=== PATIENT | male | born 1975 ===

== ENCOUNTER → 2016-11-20 | Outpatient (CLI) | payer OTHER ==
--- NOTE | 2016-11-20 23:13 | US ---
EXAMINATION TYPE: US venous doppler duplex LE LT DATE OF EXAM: 11/20/2016 3:51 PM COMPARISON: NONE CLINICAL HISTORY: M79.89 Swelling of LE,L53.9Redness. SIDE PERFORMED: Left VESSELS IMAGED: External Iliac Vein (EIV) Common Femoral Vein Deep Femoral Vein Greater Saphenous Vein * Femoral Vein Popliteal Vein Proximal Calf Veins (* superficial vessels) TECHNOLOGIST IMPRESSION: wnl Right Leg: Negative for DVT Satisfactory color flow, phasicity, and compressibility is seen in the. Structures of the left lower extremity at the above levels. IMPRESSION: No ultrasound evidence for acute DVT in the left lower extremity.
== END | disposition home or self-care (01) ==
LOC: RADUSWWP 15:19
PROVIDERS: ATTEND Family Medicine
DX: M79.89 Other specified soft tissue disorders (principal); L03.90 Cellulitis, unspecified; M79.606 Pain in leg, unspecified; L53.9 Erythematous condition, unspecified

== ENCOUNTER → 2016-11-20 | Outpatient (CLI) | payer OTHER | END | disposition home or self-care (01) | LOC: LAB 15:49 | PROVIDERS: ATTEND Nurse Practitioner Family | DX: L03.90 Cellulitis, unspecified (principal); M79.606 Pain in leg, unspecified; M79.89 Other specified soft tissue disorders; L53.9 Erythematous condition, unspecified | CPT/HCPCS: 85379 ==

== ENCOUNTER 2018-11-20 10:41 | Emergency (ER) | payer OTHER ==
[2018-11-20] MEDS ORDERED: SODIUM CHLORIDE 0.9% 1,000 ML IV STA (11:00)
[2018-11-20] MEDS ORDERED: KETOROLAC 30 MG/ML 1 ML VIAL IVP STA (11:00)
--- NOTE | 2018-11-20 11:24 | ED ---
General Adult HPI - General Chief complaint: Abdominal Pain Stated complaint: Male Time Seen by Provider: 11/20/18 10:52 Source: patient, RN notes reviewed Mode of arrival: ambulatory Limitations: no limitations - History of Present Illness Initial comments: 43-year-old male presents to the emergency department for a chief complaint of left groin pain x years. Patient states he has a hernia there. He states that 6 years ago he had a hernia repair on his right groin and this feels the same. He states the pain is now radiating up into the left side of the abdomen. Patient states his physician has been aware of this but he has not yet seen a surgeon. However the symptoms are apparently worsening including pain. Patient states sometimes there is a left groin bulge but he is able to reduce this. He denies testicular pain. Patient states he has also been constipated and has been having less frequent bowel movements. Last bowel movement was about 2 days ago and was harder than normal in consistency. Patient has no other complaints at this time including shortness of breath, chest pain, abdominal pain, nausea or vomiting, headache, or visual changes. - Related Data Home Medications Medication Instructions Recorded Confirmed Omeprazole [PriLOSEC] 20 mg PO AC-BRKFST 11/30/15 11/20/18 Aspirin/Acetaminophen/Caffeine 2 tab PO Q12H PRN 11/20/18 11/20/18 [Excedrin Migraine Caplet] Naproxen Sodium [Aleve] 220 mg PO DAILY PRN 11/20/18 11/20/18 Previous Rx's Medication Instructions Recorded Clindamycin HCl [Cleocin] 300 mg PO Q6HR 10 Days cap 11/20/18 Sulfamethoxazole/Trimethoprim 1 each PO Q12H 10 Days tablet 11/20/18 [Bactrim DS 800-160 mg] Allergies Allergy/AdvReac Type Severity Reaction Status Date / Time Penicillins Allergy Anaphylaxis Verified 11/20/18 11:03 Review of Systems ROS Statement: Those systems with pertinent positive or pertinent negative responses have been documented in the HPI. ROS Other: All systems not noted in ROS Statement are negative. Past Medical History Past Medical History: Asthma, Chest Pain / Angina, Hypertension History of Any Multi-Drug Resistant Organisms: MRSA Date of last positivie culture/infection: 11/30/15 MDRO Source:: Right Arm Past Surgical History: Hernia Repair, Orthopedic Surgery Additional Past Surgical History / Comment(s): PT STATES HE HAS SOME "CLOGGED ARTERY" ISSUES. STATES PHYSICIAN DIDN'T PUT HIM ON ANY MEDICATIONS. ALTERED DIET. ORTHOPEDIC SURGERY ON RIGHT HAND. Past Anesthesia/Blood Transfusion Reactions: No Reported Reaction Past Psychological History: Anxiety Smoking Status: Current some day smoker Past Alcohol Use History: None Reported, Daily Past Drug Use History: Marijuana General Exam Limitations: no limitations General appearance: alert, in no apparent distress Head exam: Present: atraumatic, normocephalic, normal inspection Eye exam: Present: normal appearance, PERRL, EOMI. Absent: scleral icterus, conjunctival injection, periorbital swelling ENT exam: Present: normal exam, mucous membranes moist Neck exam: Present: normal inspection, full ROM. Absent: tenderness, meningismus, lymphadenopathy Respiratory exam: Present: normal lung sounds bilaterally. Absent: respiratory distress, wheezes, rales, rhonchi, stridor Cardiovascular Exam: Present: regular rate, normal rhythm, normal heart sounds. Absent: systolic murmur, diastolic murmur, rubs, gallop, clicks GI/Abdominal exam: Present: soft, tenderness (minimal LLQ tenderness and left groin tenderness. no bulging or erythema of the L groin,), normal bowel sounds. Absent: distended, guarding, rebound, rigid Extremities exam: Present: full ROM (Full range motion in the right upper extremity), normal capillary refill (Capillary refill less than 2 seconds and radial pulse 2+ in the right upper extremity), other (Small 1 cm x 1 cm area of erythema noted to the left external upper arm. No evidence of a cellulitic infection. No spreading redness.) Neurological exam: Present: alert, oriented X3, CN II-XII intact Psychiatric exam: Present: normal affect, normal mood Course Vital Signs 11/20/18 11/20/18 10:43 13:00 Temperature 98.5 F 97.8 F Pulse Rate 81 77 Respiratory 18 20 Rate Blood Pressure 184/84 119/73 O2 Sat by Pulse 99 99 Oximetry - Reevaluation(s) Reevaluation #1: 11/20/18 13:41 Patient states he cannot take Bactrim. I did review his records and Bactrim causes itchiness and him. He did have clindamycin last time which he believes worked. He will be given this. However I did discuss strict return parameters of infection worsens. Medical Decision Making - Medical Decision Making 43-year-old male presents to the emergency department for chief complaint of left groin pain times years. Patient has had a right inguinal hernia as well. Patient states he believes he has a hernia in the left groin as he sometimes sees a buldge but is able to reduce it. Patient also complains of some left abdominal pain. Patient also has an area of erythema about 1 cm x 1 cm noted to the right proximal upper extremity. Patient concern for MRSA infection. Patient will be given Bactrim for this. However he will monitor this and agrees to return here if anything worsens. At this time patient will also be given referral to general surgeon for fat-containing hernia. Patient is frustrated that this cannot be fixed today as he has had these symptoms for 2 years. However I discussed the patient that since his symptoms have been consistent for 2 years at this time he should follow up with surgery outpatient. However I discussed if he is unable to reduce the hernia to immediately return. He will return here if he has worsening symptoms. She will also follow up with primary care for hypertension. Asymptomatic at this time. - Lab Data Result diagrams: 11/20/18 11:30 11/20/18 11:30 Lab Results 11/20/18 11/20/18 11/20/18 Range/Units 11:30 11:30 12:10 WBC 7.8 (3.8-10.6) k/uL RBC 4.57 (4.30-5.90) m/uL Hgb 13.9 (13.0-17.5) gm/dL Hct 42.1 (39.0-53.0) % MCV 92.0 (80.0-100.0) fL MCH 30.4 (25.0-35.0) pg MCHC 33.0 (31.0-37.0) g/dL RDW 12.9 (11.5-15.5) % Plt Count 202 (150-450) k/uL Neutrophils % 61 % Lymphocytes % 27 % Monocytes % 7 % Eosinophils % 3 % Basophils % 0 % Neutrophils # 4.7 (1.3-7.7) k/uL Lymphocytes # 2.1 (1.0-4.8) k/uL Monocytes # 0.5 (0-1.0) k/uL Eosinophils # 0.3 (0-0.7) k/uL Basophils # 0.0 (0-0.2) k/uL Sodium 142 (137-145) mmol/L Potassium 4.3 (3.5-5.1) mmol/L Chloride 107 (98-107) mmol/L Carbon Dioxide 29 (22-30) mmol/L Anion Gap 6 mmol/L BUN 15 (9-20) mg/dL Creatinine 0.72 (0.66-1.25) mg/dL Est GFR (CKD-EPI)AfAm >90 (>60 ml/min/1.73 sqM) Est GFR (CKD-EPI)NonAf >90 (>60 ml/min/1.73 sqM) Glucose 103 H (74-99) mg/dL Calcium 9.5 (8.4-10.2) mg/dL Total Bilirubin 0.4 (0.2-1.3) mg/dL AST 23 (17-59) U/L ALT 27 (21-72) U/L Alkaline Phosphatase 70 (38-126) U/L Total Protein 6.8 (6.3-8.2) g/dL Albumin 4.0 (3.5-5.0) g/dL Amylase 43 (30-110) U/L Lipase 71 (23-300) U/L Urine Color Yellow Urine Appearance Clear (Clear) Urine pH 7.0 (5.0-8.0) Ur Specific [place] 1.017 (1.001-1.035) Urine Protein Negative (Negative) Urine Glucose (UA) Negative (Negative) Urine Ketones Negative (Negative) Urine Blood Negative (Negative) Urine Nitrite Negative (Negative) Urine Bilirubin Negative (Negative) Urine Urobilinogen <2.0 (<2.0) mg/dL Ur Leukocyte Esterase Negative (Negative) Disposition Clinical Impression: Left inguinal hernia Disposition: HOME SELF-CARE Condition: Good Additional Instructions: Please follow up with surgeon in one to 2 days. Please take antibiotic as directed. If infection worsens or you have any other worsening symptoms return here to the emergency department. Prescriptions: Clindamycin HCl [Cleocin] 300 mg PO Q6HR 10 Days cap Sulfamethoxazole/Trimethoprim [Bactrim DS 800-160 mg] 1 each PO Q12H 10 Days tablet Is patient prescribed a controlled substance at d/c from ED?: No Referrals: Sunny Davis MD [Primary Care Provider] - 1-2 days Divina Tolentino MD [STAFF PHYSICIAN] - 1-2 days Time of Disposition: 12:59
[2018-11-20 12:04] LABS: Basophils % (A) 0 %; Eosinophils # (A) 0.3 k/uL (0-0.7); Eosinophils % (A) 3 %; HCT 42.1 % (39.0-53.0); HGB 13.9 gm/dL (13.0-17.5); Lymphocytes # (A) 2.1 k/uL (1.0-4.8); Lymphocytes % (A) 27 %; MCH 30.4 pg (25.0-35.0); Mean Platelet Volume 8.3; Monocytes # (A) 0.5 k/uL (0-1.0); Monocytes % (A) 7 %; Neutrophils # (A) 4.7 k/uL (1.3-7.7); Neutrophils % (A) 61 %; Platelet Count 202 k/uL (150-450); RBC 4.57 m/uL (4.30-5.90); RDW 12.9 % (11.5-15.5); WBC 7.8 k/uL (3.8-10.6)
[2018-11-20 12:15] LABS: ALT 27 U/L (21-72); AST 23 U/L (17-59); Alkaline Phosphatase 70 U/L (38-126); Amylase 43 U/L (30-110); Anion Gap 6 mmol/L; Blood Urea Nitrogen 15 mg/dL (9-20); Calcium 9.5 mg/dL (8.4-10.2); Carbon Dioxide 29 mmol/L (22-30); Chloride 107 mmol/L (98-107); Glucose 103 mg/dL (74-99); Lipase 71 U/L (23-300); Potassium 4.3 mmol/L (3.5-5.1); Sodium 142 mmol/L (137-145); Total Bilirubin 0.4 mg/dL (0.2-1.3); Total Protein 6.8 g/dL (6.3-8.2)
[2018-11-20 12:29] LABS: Appearance,Urine Clear (Clear); Bilirubin,Urine Negative (Negative); Blood,Urine Negative (Negative); Color,Urine Yellow; Glucose,Urine (UA) Negative (Negative); Ketones,Urine Negative (Negative); Leukocyte Esterase,Urine Negative (Negative); Nitrite,Urine Negative (Negative); Protein,Urine Negative (Negative); Specific Gravity,Urine 1.017 (1.001-1.035); Urobilinogen,Urine <2.0 mg/dL (<2.0)
--- NOTE | 2018-11-20 12:29 | CT ---
EXAMINATION TYPE: CT abdomen pelvis w con DATE OF EXAM: 11/20/2018 COMPARISON: None HISTORY: Left sided abdominal pain CT DLP: 667.20 mGycm Automated exposure control for dose reduction was used. TECHNIQUE: Helical acquisition of images from the lung bases through the pelvis have been completed. CONTRAST: Performed without Oral Contrast and with IV Contrast, patient injected with 100 mL of Isovue 300. FINDINGS: Suspect there is a left inguinal hernia containing fat LUNG BASES: No significant abnormality is appreciated. AORTA: No significant abnormality is appreciated. LIVER/GB: Liver is enlarged and shows low attenuation PANCREAS: No significant abnormality is seen. SPLEEN: No significant abnormality is seen. ADRENALS: No significant abnormality is seen. KIDNEYS: Left collecting system is noted, 2 discrete ureters noted to extend distally to the level of the bladder. No renal calcifications, there is an exophytic cystic focus at the midpole the right ki dney measuring 2 cm. REPRODUCTIVE ORGANS: No significant abnormality is seen BOWEL: There are small bowel loops show fluid and questionable wall thickening in the left abdomen. The appendix is normal. FREE AIR: No Free Air visible. ASCITES: None visible. PELVIC ADENOPATHY: None visualized. RETROPERITONEAL ADENOPATHY: No Retroperitoneal Adenopathy visible. URINARY BLADDER: No significant abnormality is seen. OSSEOUS STRUCTURES: No significant abnormality is seen. IMPRESSION: CORRELATE FOR POSSIBLE ENTERITIS. SUSPECT POSSIBLE RECURRENCE OF LEFT INGUINAL HERNIA, CORRELATE. Hep atomegaly, possible hepatic steatosis.
[2018-11-20 13:15] VITALS: BP 119/73; PULSE 77; RESP 20; TEMP 97.8
== END 2018-11-20 13:30 | disposition home or self-care (01) ==
LOC: EC 10:41
DX: K40.90 Unilateral inguinal hernia, without obstruction or gangrene, not specified as recurrent (principal); F17.200 Nicotine dependence, unspecified, uncomplicated; Z87.19 Personal history of other diseases of the digestive system; Z86.14 Personal history of Methicillin resistant Staphylococcus aureus infection; Z98.890 Other specified postprocedural states; Z79.899 Other long term (current) drug therapy; Z88.0 Allergy status to penicillin
CPT/HCPCS: 36415; 80053; 82150; 83690; 85025; 81003; 74177; 99284; 96374; 96361; J1885; Q9967

== ENCOUNTER 2019-02-04 06:56 | Day surgery (SDC) | payer OTHER ==
[2019-01-30 13:21] VITALS: BMI 26.9
[~2019-02-04 06:56] MED LIST: LACTATED RINGERS 1,000 ML IV SCH; LIDOCAINE 1% 20 ML VIAL (10MG/ML) FOR IV START INTRADERMA PRN
[2019-02-04 07:13] VITALS: TEMP 98.5
[2019-02-04] MEDS ORDERED: PROPOFOL 10 MG/ML 20 ML VIAL IV ONE (07:39)
--- NOTE | 2019-02-04 07:40 | P.GSHP ---
History of Present Illness H&P Date: 02/04/19 CHIEF COMPLAINT: GERD HISTORY OF PRESENT ILLNESS: The patient is a 43-year-old male who presents reports gastroesophageal reflux disease. Upper endoscopy was offered for further evaluation and management. PAST MEDICAL HISTORY: Please see list. PAST SURGICAL HISTORY: Please see list. MEDICATIONS: Please see list. ALLERGIES: Please see list. SOCIAL HISTORY: No illicit drug use FAMILY HISTORY: No reports of Crohn disease or ulcerative colitis. REVIEW OF ORGAN SYSTEMS: CONSTITUTIONAL: No reports of fevers or chills. GI: Denies any blood in stools or constipation. PHYSICAL EXAM: VITAL SIGNS: Stable GENERAL: Well-developed and pleasant in no acute distress. HEENT: No scleral icterus. Extraocular movements grossly intact. Moist buccal mucosa. NECK: Supple without lymphadenopathy. CHEST: Unlabored respirations. Equal bilateral excursions. CARDIOVASCULAR: Regular rate and rhythm. Distal 2+ pulses. ABDOMEN: Soft, nondistended. MUSCULOSKELETAL: No clubbing, cyanosis, or edema. ASSESSMENT: 1. Gastroesophageal reflux disease PLAN: 1. Recommend proceeding with an upper endoscopy Past Medical History Past Medical History: Asthma, Chest Pain / Angina, GERD/Reflux, Hyperlipidemia, Hypertension History of Any Multi-Drug Resistant Organisms: MRSA Date of last positivie culture/infection: 11/30/15 MDRO Source:: Right Arm Past Surgical History: Hernia Repair, Orthopedic Surgery Additional Past Surgical History / Comment(s): ORTHOPEDIC SURGERY ON RIGHT HAND. Past Anesthesia/Blood Transfusion Reactions: No Reported Reaction Smoking Status: Never smoker - Past Family History Mother Family Medical History: No Reported History Medications and Allergies Home Medications Medication Instructions Recorded Confirmed Type Omeprazole [PriLOSEC] 20 mg PO AC-BRKFST 11/30/15 02/04/19 History Atorvastatin [Lipitor] 20 mg PO DAILY 01/30/19 02/04/19 History Cyclobenzaprine [Flexeril] 10 mg PO BID PRN 01/30/19 02/04/19 History Ergocalciferol (Vitamin D2) 50,000 unit PO TU 01/30/19 01/30/19 History [Vitamin D2] HYDROcodone/APAP 7.5-325MG [[place] 1 tab PO BID 01/30/19 02/04/19 History 7.5-325] Loratadine [Claritin] 10 mg PO DAILY PRN 01/30/19 02/04/19 History Metoprolol Tartrate [Lopressor] 25 mg PO BID 01/30/19 02/04/19 History amLODIPine [Norvasc] 5 mg PO DAILY 01/30/19 02/04/19 History Allergies Allergy/AdvReac Type Severity Reaction Status Date / Time Penicillins Allergy Anaphylaxis Verified 02/04/19 07:13 Surgical - Exam Vital Signs Temp Pulse Resp BP Pulse Ox 98.5 F 82 17 122/67 100 02/04/19 07:11 02/04/19 07:11 02/04/19 07:11 02/04/19 07:11 02/04/19 07:11
[2019-02-04 07:58] VITALS: RESP 16
[2019-02-04 08:28] VITALS: BP 137/77; PULSE 80
--- NOTE | 2019-02-08 14:34 | P.PCN ---
Date of Procedure: 02/04/19 Description of Procedure: PREOPERATIVE DIAGNOSIS: Gastroesophageal reflux disease. POSTOPERATIVE DIAGNOSIS: Gastritis chronic Gastroesophageal reflux disease. Diaphragmatic hiatal hernia OPERATION: Esophagogastroduodenoscopy with biopsies along antrum. SURGEON: Divina Tolentino MD ANESTHESIA: MAC. INDICATIONS: The patient is a 43-year-old male who presents with a history of reflux disease. Benefits and risks of the procedure were described. Informed consent was obtained. DESCRIPTION: The patient was brought into the endoscopy suite and laid in the left lateral decubitus position. An Olympus gastroscope was passed along the posterior oropharynx down to the distal esophagus where the squamocolumnar junction was encountered at 40 cm from the incisors. The stomach was entered and no bile reflux was found. Additional findings are listed below. Biopsies with cold forceps were obtained of the antrum. The first through third portion of the duodenum was examined and unremarkable for duodenitis. Retroflexion of the scope confirmed Hill grade 3 lower esophageal valve. The squamocolumnar junction demonstrated LA grade A erosive esophagitis. The stomach was desufflated. The patient tolerated the procedure well. FINDINGS: Squamocolumnar junction 40 cm from the incisors. Diaphragmatic hiatus at 41 cm. Hiatal hernia, 1 cm Hill grade 3 lower esophageal valve. LA grade A erosive esophagitis. No active duodenitis. Chronic gastritis RECOMMENDATIONS: Upper endoscopy as needed. Plan - Discharge Summary Discharge Rx Participant: No New Discharge Prescriptions: New Omeprazole 40 mg PO DAILY #14 capsule.dr Discontinued Omeprazole [PriLOSEC] 20 mg PO AC-BRKFST No Action amLODIPine [Norvasc] 5 mg PO DAILY Atorvastatin [Lipitor] 20 mg PO DAILY Metoprolol Tartrate [Lopressor] 25 mg PO BID Loratadine [Claritin] 10 mg PO DAILY PRN PRN Reason: allergies HYDROcodone/APAP 7.5-325MG [[place] 7.5-325] 1 tab PO BID Cyclobenzaprine [Flexeril] 10 mg PO BID PRN PRN Reason: Pain Ergocalciferol (Vitamin D2) [Vitamin D2] 50,000 unit PO TU Discharge Medication List Atorvastatin [Lipitor] 20 mg PO DAILY 01/30/19 [History] Cyclobenzaprine [Flexeril] 10 mg PO BID PRN 01/30/19 [History] Ergocalciferol (Vitamin D2) [Vitamin D2] 50,000 unit PO TU 01/30/19 [History] HYDROcodone/APAP 7.5-325MG [[place] 7.5-325] 1 tab PO BID 01/30/19 [History] Loratadine [Claritin] 10 mg PO DAILY PRN 01/30/19 [History] Metoprolol Tartrate [Lopressor] 25 mg PO BID 01/30/19 [History] amLODIPine [Norvasc] 5 mg PO DAILY 01/30/19 [History] Omeprazole 40 mg PO DAILY #14 capsule. 02/04/19 [Rx] Follow up Appointment(s)/Referral(s): Divina Tolentino MD [STAFF PHYSICIAN] - 03/03/19 Patient Instructions/Handouts: *Surgery [facility] - (Anesthesia) Endoscopy Discharge Instructions, Gastritis (DC), Upper Endoscopy (DC) Activity/Diet/Wound Care/Special Instructions: Start new medication for 2 to 4 weeks Discharge Disposition: HOME SELF-CARE
== END 2019-02-04 08:36 | disposition home or self-care (01) ==
LOC: ORWHC2ENDO 06:56
PROVIDERS: ATTEND Surgery Plastic and Reconstructive Surgery
DX: K21.9 Gastro-esophageal reflux disease without esophagitis (principal); K29.50 Unspecified chronic gastritis without bleeding; K22.10 Ulcer of esophagus without bleeding; K44.9 Diaphragmatic hernia without obstruction or gangrene; I10 Essential (primary) hypertension; E78.5 Hyperlipidemia, unspecified; J45.909 Unspecified asthma, uncomplicated; Z86.14 Personal history of Methicillin resistant Staphylococcus aureus infection; F41.9 Anxiety disorder, unspecified; Z79.891 Long term (current) use of opiate analgesic; Z79.899 Other long term (current) drug therapy; Z88.0 Allergy status to penicillin
CPT/HCPCS: 88305; 43239; J2704

== ENCOUNTER → 2019-03-06 | Outpatient (CLI) | payer OTHER ==
--- NOTE | 2019-03-06 11:55 | US ---
EXAMINATION TYPE: US kidneys/renal and bladder DATE OF EXAM: 03/06/2019 COMPARISON: CT 11/20/2018 CLINICAL HISTORY: N28.1 Right Cyst of kidney. Pt states recent MRI showing right renal cyst, pt also ahs previous CT Nov 2018 showing right renal cyst EXAM MEASUREMENTS: Right Kidney: 11.3 x 4.8 x 5.1 cm Left Kidney: 11.8 x 6.7 x 5.7 cm Right Kidney: Cyst lateral= 1.5 x 1.3 x 1.0 cm Left Kidney: Double collecting system, otherwise appeared wnl Bladder: wnl Bilateral Jets seen: Yes Normal Post Void Residual: IMPRESSION: 1. Simple right renal cyst.
== END | disposition home or self-care (01) ==
LOC: RADUSWWP 10:58
PROVIDERS: ATTEND Psychiatry & Neurology Neurology
DX: N28.1 Cyst of kidney, acquired (principal)
CPT/HCPCS: 76770

== ENCOUNTER 2019-04-09 15:35 | Emergency (ER) | payer OTHER ==
[2019-04-09] MEDS ORDERED: VANCOMYCIN IV PER PHARMACY 1 EACH MISC MISCELLANE PRN (16:00)
[2019-04-09] MEDS ORDERED: SODIUM CHLORIDE 0.9% 1,000 ML IV ONE (16:00)
[2019-04-09] MEDS ORDERED: SODIUM CHLORIDE 0.9% 1,000 ML IV SCH (16:00)
[2019-04-09] MEDS ORDERED: VANCOMYCIN 1,500 MG in SODIUM CHLORIDE 0.9% 250 ML IVPB STA (16:12)
--- NOTE | 2019-04-09 16:16 | ED ---
General Adult HPI - General Chief complaint: Recheck/Abnormal Lab/Rx Stated complaint: pt won't tell me what he's here for Time Seen by Provider: 04/09/19 15:45 Source: patient, RN notes reviewed, old records reviewed Mode of arrival: ambulatory Limitations: no limitations - History of Present Illness Initial comments: Patient is a 43-year-old male who presents from being sent by his PCPs office for concern for MRSA. Patient has an abrasion over his left olsen which she sustained on Saturday while riding a tractor. Patient states that he is ALLERGI C to oral antibiotics. Patient's PCP called attending emergency room physician to report he is coming. Patient has had a history of not feeling well and complains of history of fever. Patient complains of left olsen swelling. Patient has had no other symptoms at this time. - Related Data Home Medications Medication Instructions Recorded Confirmed Atorvastatin [Lipitor] 20 mg PO DAILY 01/30/19 02/04/19 Cyclobenzaprine [Flexeril] 10 mg PO BID PRN 01/30/19 02/04/19 Ergocalciferol (Vitamin D2) 50,000 unit PO TU 01/30/19 01/30/19 [Vitamin D2] HYDROcodone/APAP 7.5-325MG [[place] 1 tab PO BID 01/30/19 02/04/19 7.5-325] Loratadine [Claritin] 10 mg PO DAILY PRN 01/30/19 02/04/19 Metoprolol Tartrate [Lopressor] 25 mg PO BID 01/30/19 02/04/19 amLODIPine [Norvasc] 5 mg PO DAILY 01/30/19 02/04/19 Previous Rx's Medication Instructions Recorded Omeprazole 40 mg PO DAILY #14 capsule. 02/04/19 Doxycycline [Vibramycin] 100 mg PO BID #14 cap 04/09/19 Allergies Allergy/AdvReac Type Severity Reaction Status Date / Time Penicillins Allergy Anaphylaxis Verified 02/04/19 07:13 Review of Systems ROS Statement: Those systems with pertinent positive or pertinent negative responses have been documented in the HPI. ROS Other: All systems not noted in ROS Statement are negative. Past Medical History Past Medical History: Asthma, Chest Pain / Angina, GERD/Reflux, Hyperlipidemia, Hypertension History of Any Multi-Drug Resistant Organisms: MRSA Date of last positivie culture/infection: 11/30/15 MDRO Source:: Right Arm Past Surgical History: Hernia Repair, Orthopedic Surgery Additional Past Surgical History / Comment(s): ORTHOPEDIC SURGERY ON RIGHT HAND. Past Anesthesia/Blood Transfusion Reactions: No Reported Reaction Past Psychological History: Anxiety Smoking Status: Never smoker Past Alcohol Use History: None Reported Past Drug Use History: Marijuana - Past Family History Mother Family Medical History: No Reported History General Exam - General Exam Comments Initial Comments: is a 43-year-old male. Patient appears manic. Hyperverbal. Limitations: no limitations General appearance: alert Head exam: Present: atraumatic, normocephalic, normal inspection Eye exam: Present: normal appearance, PERRL, EOMI. Absent: scleral icterus, conjunctival injection, periorbital swelling ENT exam: Present: normal exam, mucous membranes moist Neck exam: Present: normal inspection. Absent: tenderness, meningismus, lymphadenopathy Respiratory exam: Present: normal lung sounds bilaterally. Absent: respiratory distress, wheezes, rales, rhonchi, stridor Cardiovascular Exam: Present: regular rate, normal rhythm, normal heart sounds. Absent: systolic murmur, diastolic murmur, rubs, gallop, clicks GI/Abdominal exam: Present: soft, normal bowel sounds. Absent: distended, tenderness, guarding, rebound, rigid Extremities exam: Present: normal inspection, other (2cm abrasion over left olsen, no induration, no swelling. No drainage. ) Back exam: Present: normal inspection Neurological exam: Present: alert Psychiatric exam: Present: normal affect Skin exam: Present: warm Course Vital Signs 04/09/19 04/09/19 04/09/19 15:38 17:52 18:43 Temperature 98.4 F 98.3 F 98.9 F Pulse Rate 80 60 69 Respiratory 20 19 18 Rate Blood Pressure 142/81 131/95 124/78 O2 Sat by Pulse 100 99 100 Oximetry Medical Decision Making - Medical Decision Making Patient is a 43 year old male presents for abrasion over left olsen. Patient is concerned for infection, as he has had a history of MRSA on left arm. Patient at si time has no significant induration, swelling or other signs of infection. He presents somewhat hyperverbal behaviour. Patient PCP sent in. At this time patient has normal labs, and US is negative for DVT. Given dose of vancomycin. Discussed that patient has not falied outpatient treatment nad there is no significant cellulitis for admission. Patient will be started on doxycycline and discussed PCP follow up. - Lab Data Result diagrams: 04/09/19 16:16 04/09/19 16:16 Lab Results 04/09/19 04/09/19 Range/Units 16:16 16:16 WBC 7.2 (3.8-10.6) k/uL RBC 3.88 L (4.30-5.90) m/uL Hgb 12.4 L (13.0-17.5) gm/dL Hct 36.2 L (39.0-53.0) % MCV 93.2 (80.0-100.0) fL MCH 32.1 (25.0-35.0) pg MCHC 34.4 (31.0-37.0) g/dL RDW 13.0 (11.5-15.5) % Plt Count 216 (150-450) k/uL Neutrophils % 55 % Lymphocytes % 33 % Monocytes % 5 % Eosinophils % 4 % Basophils % 0 % Neutrophils # 3.9 (1.3-7.7) k/uL Lymphocytes # 2.4 (1.0-4.8) k/uL Monocytes # 0.4 (0-1.0) k/uL Eosinophils # 0.3 (0-0.7) k/uL Basophils # 0.0 (0-0.2) k/uL Sodium 142 (137-145) mmol/L Potassium 3.3 L (3.5-5.1) mmol/L Chloride 108 H (98-107) mmol/L Carbon Dioxide 28 (22-30) mmol/L Anion Gap 6 mmol/L BUN 16 (9-20) mg/dL Creatinine 0.71 (0.66-1.25) mg/dL Est GFR (CKD-EPI)AfAm >90 (>60 ml/min/1.73 sqM) Est GFR (CKD-EPI)NonAf >90 (>60 ml/min/1.73 sqM) Glucose 100 H (74-99) mg/dL Calcium 8.6 (8.4-10.2) mg/dL Disposition Clinical Impression: Left leg cellulitis Disposition: HOME SELF-CARE Condition: Good Instructions (If sedation given, give patient instructions): Cellulitis (ED) Additional Instructions: Patient is advised to follow-up with primary care doctor. Should apply antibiotic ointment over the area. Return to emergency department if any ala rming signs or symptoms occur. Prescriptions: Doxycycline [Vibramycin] 100 mg PO BID #14 cap Is patient prescribed a controlled substance at d/c from ED?: No Referrals: Catia De Paz MD [Primary Care Provider] - 1-2 days Time of Disposition: 17:48
[2019-04-09 16:32] LABS: Basophils % (A) 0 %; Eosinophils # (A) 0.3 k/uL (0-0.7); Eosinophils % (A) 4 %; HCT 36.2 % (39.0-53.0); HGB 12.4 gm/dL (13.0-17.5); Lymphocytes # (A) 2.4 k/uL (1.0-4.8); Lymphocytes % (A) 33 %; MCH 32.1 pg (25.0-35.0); MCHC 34.4 g/dL (31.0-37.0); MCV 93.2 fL (80.0-100.0); Mean Platelet Volume 7.9; Monocytes # (A) 0.4 k/uL (0-1.0); Monocytes % (A) 5 %; Neutrophils # (A) 3.9 k/uL (1.3-7.7); Neutrophils % (A) 55 %; Platelet Count 216 k/uL (150-450); RBC 3.88 m/uL (4.30-5.90); WBC 7.2 k/uL (3.8-10.6)
[2019-04-09 17:02] LABS: African American GFR (CKD) >90 (>60 ml/min/1.73 sqM); Anion Gap 6 mmol/L; Blood Urea Nitrogen 16 mg/dL (9-20); Calcium 8.6 mg/dL (8.4-10.2); Carbon Dioxide 28 mmol/L (22-30); Chloride 108 mmol/L (98-107); Glucose 100 mg/dL (74-99); Potassium 3.3 mmol/L (3.5-5.1); Sodium 142 mmol/L (137-145)
--- NOTE | 2019-04-09 17:13 | US ---
EXAMINATION TYPE: US venous doppler duplex LE LT DATE OF EXAM: 04/09/2019 4:00 PM COMPARISON: 11/20/2016 CLINICAL HISTORY: Pain. Left leg pain SIDE PERFORMED: Left TECHNIQUE: The lower extremity deep venous system is examined utilizing real time linear array sonog kennedy with graded compression, doppler sonography and color-flow sonography. VESSELS IMAGED: External Iliac Vein (EIV) Common Femoral Vein Deep Femoral Vein Greater Saphenous Vein * Femoral Vein Popliteal Vein Small Saphenous Vein * Proximal Calf Veins (* superficial vessels) Left Leg: Negative for DVT IMPRESSION: Normal left leg duplex venous sonogram.
[2019-04-09 18:46] VITALS: BP 124/78; PULSE 69; RESP 18; TEMP 98.9
[2019-04-10] MEDS ORDERED: VANCOMYCIN 1,250 MG in SODIUM CHLORIDE 0.9% 250 ML IVPB SCH ×2
== END 2019-04-09 18:46 | disposition home or self-care (01) ==
LOC: EC 15:35
DX: L03.116 Cellulitis of left lower limb (principal); S80.812A Abrasion, left lower leg, initial encounter; E78.5 Hyperlipidemia, unspecified; I10 Essential (primary) hypertension; Z79.899 Other long term (current) drug therapy; Z88.0 Allergy status to penicillin; Z86.14 Personal history of Methicillin resistant Staphylococcus aureus infection
CPT/HCPCS: 36415; 80048; 85025; 87040; 93971; 99284; 96365; 96366; J3370

== ENCOUNTER 2019-05-20 09:31 | Day surgery (SDC) | payer OTHER ==
[2019-05-18 09:30] VITALS: BMI 26.6
[2019-05-20 09:49] VITALS: RESP 16; TEMP 97.8
--- NOTE | 2019-05-20 10:48 | P.GSHP ---
History of Present Illness H&P Date: 05/20/19 CHIEF COMPLAINT: Colon screen HISTORY OF PRESENT ILLNESS: The patient is a 43-year-old male who presents for colon screen. Lower endoscopy was offered for further evaluation and management. PAST MEDICAL HISTORY: Please see list. PAST SURGICAL HISTORY: Please see list. MEDICATIONS: Please see list. ALLERGIES: Please see list. SOCIAL HISTORY: No illicit drug use FAMILY HISTORY: No reports of Crohn disease or ulcerative colitis. REVIEW OF ORGAN SYSTEMS: CONSTITUTIONAL: No reports of fevers or chills. PHYSICAL EXAM: VITAL SIGNS: Stable GENERAL: Well-developed pleasant in no acute distress. HEENT: No scleral icterus. Extraocular movements grossly intact. Moist buccal mucosa. NECK: Supple without lymphadenopathy. CHEST: Unlabored respirations. Equal bilateral excursions. CARDIOVASCULAR: Regular rate and rhythm. Distal 2+ pulses. ABDOMEN: Soft, nontender, nondistended. MUSCULOSKELETAL: No clubbing, cyanosis, or edema. ASSESSMENT: 1. Colon screen. PLAN: 1. Recommend proceeding with a lower endoscopy Past Medical History Past Medical History: Asthma, Chest Pain / Angina, GERD/Reflux, Hyperlipidemia, Hypertension History of Any Multi-Drug Resistant Organisms: MRSA Date of last positivie culture/infection: 11/30/15 MDRO Source:: Right Arm Past Surgical History: Hernia Repair, Orthopedic Surgery Additional Past Surgical History / Comment(s): ORTHOPEDIC SURGERY ON RIGHT HAND. Past Anesthesia/Blood Transfusion Reactions: No Reported Reaction Smoking Status: Never smoker - Past Family History Mother Family Medical History: No Reported History Medications and Allergies Home Medications Medication Instructions Recorded Confirmed Type Atorvastatin [Lipitor] 20 mg PO DAILY 01/30/19 05/20/19 History Cyclobenzaprine [Flexeril] 10 mg PO BID PRN 01/30/19 05/20/19 History Ergocalciferol (Vitamin D2) 50,000 unit PO TU 01/30/19 05/20/19 History [Vitamin D2] HYDROcodone/APAP 7.5-325MG [[place] 1 tab PO BID 01/30/19 05/20/19 History 7.5-325] Loratadine [Claritin] 10 mg PO DAILY PRN 01/30/19 05/20/19 History Metoprolol Tartrate [Lopressor] 25 mg PO BID 01/30/19 05/20/19 History amLODIPine [Norvasc] 5 mg PO DAILY 01/30/19 05/20/19 History Omeprazole 40 mg PO DAILY #14 capsule. 02/04/19 05/20/19 Rx Doxycycline [Vibramycin] 100 mg PO BID #14 cap 04/09/19 05/20/19 Rx Allergies Allergy/AdvReac Type Severity Reaction Status Date / Time Penicillins Allergy Anaphylaxis Verified 05/20/19 09:43 Surgical - Exam Vital Signs Temp Pulse Resp BP Pulse Ox 97.8 F 77 16 134/80 97 05/20/19 09:48 05/20/19 09:48 05/20/19 09:48 05/20/19 09:48 05/20/19 09:48
[2019-05-20] MEDS ORDERED: PROPOFOL 10 MG/ML 20 ML VIAL IV ONE (10:53)
--- NOTE | 2019-05-20 11:21 | P.PCN ---
Date of Procedure: 05/20/19 Description of Procedure: PREOPERATIVE DIAGNOSIS: History of change in bowel habits History of rectal bleeding POSTOPERATIVE DIAGNOSIS: History of change in bowel habits History of rectal bleeding External prolapsed hemorrhoids, grade 3 Internal hemorrhoids, grade 3 OPERATION: Colonoscopy to the ileocecal valve and appendiceal orifice. SURGEON: Divina Tolentino MD. ANESTHESIA: MAC. INDICATIONS: The patient is a 43-year-old male who presents with change in bowel habits including rectal bleeding. Benefits and risks were described and informed consent was obtained. DESCRIPTION OF PROCEDURE: The patient had undergone Gatorade, MiraLAX and Dulcolax prep. He had been brought into the operating room and laid in the left lateral decubitus position. After adequate intravenous sedation, the rectum was examined with 2% lidocaine jelly. External hemorrhoids were encountered. The rectal tone was within normal limits. No lesions were palpated in the rectal vault. An Olympus colonoscope was advanced until the ileocecal valve and appendiceal orifice were clearly viewed. The prep was excellent with clear visualization of the mucosal folds. Abdominal wall pressure was used to advance the scope. No scattered diverticulosis was encountered. No colonic polyps were found. No evidence of focal colitis was found. Retroflexion of the scope demonstrated grade 3 internal hemorrhoids without active bleeding or inflammation. The colon was desufflated. The patient had tolerated the procedure well. Withdrawal time was over 6 minutes. FINDINGS: Aronchick preparation quality scale 1 (1-5) Internal hemorrhoids, grade 3 External prolapsed hemorrhoids, grade 3 No arteriovenous malformations. No scattered sigmoid diverticulosis Redundant sigmoid colon requiring abdominal wall pressure. No adenomatous polyps. No focal colitis. RECOMMENDATIONS: Lower endoscopy every 10 years per screening guidelines; however down to 5 years with family history of colon polyps or cancer. Plan - Discharge Summary Discharge Rx Participant: No New Discharge Prescriptions: No Action amLODIPine [Norvasc] 5 mg PO DAILY Atorvastatin [Lipitor] 20 mg PO DAILY Metoprolol Tartrate [Lopressor] 25 mg PO BID Loratadine [Claritin] 10 mg PO DAILY PRN PRN Reason: allergies HYDROcodone/APAP 7.5-325MG [[place] 7.5-325] 1 tab PO BID Cyclobenzaprine [Flexeril] 10 mg PO BID PRN PRN Reason: Pain Ergocalciferol (Vitamin D2) [Vitamin D2] 50,000 unit PO TU Omeprazole 40 mg PO DAILY #14 capsule. Doxycycline [Vibramycin] 100 mg PO BID #14 cap Discharge Medication List Atorvastatin [Lipitor] 20 mg PO DAILY 01/30/19 [History] Cyclobenzaprine [Flexeril] 10 mg PO BID PRN 01/30/19 [History] Ergocalciferol (Vitamin D2) [Vitamin D2] 50,000 unit PO TU 01/30/19 [History] HYDROcodone/APAP 7.5-325MG [[place] 7.5-325] 1 tab PO BID 01/30/19 [History] Loratadine [Claritin] 10 mg PO DAILY PRN 01/30/19 [History] Metoprolol Tartrate [Lopressor] 25 mg PO BID 01/30/19 [History] amLODIPine [Norvasc] 5 mg PO DAILY 01/30/19 [History] Omeprazole 40 mg PO DAILY #14 capsule. 02/04/19 [Rx] Doxycycline [Vibramycin] 100 mg PO BID #14 cap 04/09/19 [Rx] Follow up Appointment(s)/Referral(s): Divina Tolentino MD [STAFF PHYSICIAN] - As Needed Patient Instructions/Handouts: Hemorrhoids (DC) Activity/Diet/Wound Care/Special Instructions: Repeat lower endoscopy 5 years, 2023 Discharge Disposition: HOME SELF-CARE
[2019-05-20 11:40] VITALS: BP 159/77; PULSE 70
== END 2019-05-20 12:30 | disposition home or self-care (01) ==
LOC: ORWHC2ENDO 09:31
PROVIDERS: ATTEND Surgery Plastic and Reconstructive Surgery
DX: K64.4 Residual hemorrhoidal skin tags (principal); K64.8 Other hemorrhoids; E78.5 Hyperlipidemia, unspecified; I10 Essential (primary) hypertension; J45.909 Unspecified asthma, uncomplicated; K21.9 Gastro-esophageal reflux disease without esophagitis; Z88.0 Allergy status to penicillin; Z79.891 Long term (current) use of opiate analgesic; Z79.899 Other long term (current) drug therapy; Z86.14 Personal history of Methicillin resistant Staphylococcus aureus infection
CPT/HCPCS: 45378; J2704

== ENCOUNTER → 2019-06-02 | Outpatient (CLI) | payer OTHER ==
[2019-06-02 12:11] LABS: Basophils % (A) 0 %; Eosinophils # (A) 0.1 k/uL (0-0.7); Eosinophils % (A) 1 %; HCT 40.6 % (39.0-53.0); HGB 13.8 gm/dL (13.0-17.5); Lymphocytes # (A) 1.8 k/uL (1.0-4.8); Lymphocytes % (A) 25 %; MCH 31.7 pg (25.0-35.0); MCHC 33.9 g/dL (31.0-37.0); MCV 93.3 fL (80.0-100.0); Mean Platelet Volume 7.7; Monocytes # (A) 0.4 k/uL (0-1.0); Monocytes % (A) 6 %; Neutrophils # (A) 4.6 k/uL (1.3-7.7); Neutrophils % (A) 65 %; Platelet Count 203 k/uL (150-450); RBC 4.35 m/uL (4.30-5.90); RDW 12.7 % (11.5-15.5); WBC 7.1 k/uL (3.8-10.6)
== END | disposition home or self-care (01) ==
LOC: LABPAT 11:18
PROVIDERS: ATTEND Surgery Plastic and Reconstructive Surgery
DX: Z01.812 Encounter for preprocedural laboratory examination (principal)
CPT/HCPCS: 36415; 85025

== ENCOUNTER 2019-06-04 09:37 | Day surgery (SDC) | payer OTHER ==
[2019-06-02 09:22] VITALS: BMI 25.7
[~2019-06-04 09:37] MED LIST changes: +CLINDAMYCIN 900 MG in DEXTROSE 5% IN WATER 50 ML IVPB ONE; +DEXAMETHASONE SOD PHOSPHATE 10 MG/ML 1 ML VIAL IV ONE; +HEPARIN SODIUM,PORCINE 5,000 UNIT/ML 1 ML VIAL SQ ONE; +HYDROmorphone 0.5 MG/0.5 ML SYRINGE IVP PRN; -LACTATED RINGERS 1,000 ML IV SCH; +LEVOFLOXACIN 500MG-D5W PMX 500 MG in DEXTROSE/WATER 1 100ML.BAG IVPB ONE; -LIDOCAINE 1% 20 ML VIAL (10MG/ML) FOR IV START INTRADERMA PRN; +MIDAZOLAM 2 MG/2 ML VIAL IV PRN; +ONDANSETRON 4 MG/2 ML VIAL IVP ONE; +SCOPOLAMINE 1.5MG/72HR PATCH TRANSDERM ONE
--- NOTE | 2019-06-04 10:18 | P.GSHP ---
History of Present Illness H&P Date: 06/04/19 CHIEF COMPLAINT: Inguinal hernia, left, recurrent HISTORY OF PRESENT ILLNESS: The patient is a 43-year-old male who presents with a history of swelling and pain along the left groin. He has had previous repair. He's noted increased swelling including pain of the area. Now he presents for repair of his inguinal hernia. PAST MEDICAL HISTORY: Please see list. PAST SURGICAL HISTORY: Please see list. MEDICATIONS: Please see list. ALLERGIES: Please see list. SOCIAL HISTORY: No illicit drug use FAMILY HISTORY: No reports of Crohn disease or ulcerative colitis. REVIEW OF ORGAN SYSTEMS: CONSTITUTIONAL: No reports of fevers or chills. No reports of weight loss despite prior attempts. GI: Denies any blood in stools or constipation. PHYSICAL EXAM: VITAL SIGNS: Stable GENERAL: Well-developed pleasant male in no acute distress. HEENT: No scleral icterus. Extraocular movements grossly intact. Moist buccal mucosa. NECK: Supple without lymphadenopathy. CHEST: Unlabored respirations. Equal bilateral excursions. CARDIOVASCULAR: Regular rate and rhythm. Distal 2+ pulses. ABDOMEN: Soft, nondistended. No peritoneal signs. Palpable defect of the left groin. MUSCULOSKELETAL: No clubbing, cyanosis, or edema. ASSESSMENT: 1. Inguinal hernia, left PLAN: 1. Recommend proceeding with a robotic inguinal repair with mesh with possible bilateral approach. 2. Benefits and risks of surgical intervention was discussed including possibility of open technique. 3. DVT prophylaxis. 4. Antibiotic prophylaxis. Past Medical History Past Medical History: GERD/Reflux, Hyperlipidemia, Hypertension Additional Past Medical History / Comment(s): "chronic pain symdrome" History of Any Multi-Drug Resistant Organisms: MRSA Date of last positivie culture/infection: 11/30/15 MDRO Source:: Right Arm Past Surgical History: Hernia Repair, Orthopedic Surgery Additional Past Surgical History / Comment(s): left inguinal hernia, arthroscopy rt knee, Past Anesthesia/Blood Transfusion Reactions: No Reported Reaction Smoking Status: Never smoker - Past Family History Mother Family Medical History: No Reported History Medications and Allergies Home Medications Medication Instructions Recorded Confirmed Type Atorvastatin [Lipitor] 20 mg PO HS 01/30/19 06/02/19 History Cyclobenzaprine [Flexeril] 10 mg PO BID PRN 01/30/19 06/02/19 History Loratadine [Claritin] 10 mg PO DAILY PRN 01/30/19 06/02/19 History Metoprolol Tartrate [Lopressor] 25 mg PO BID 01/30/19 06/02/19 History amLODIPine [Norvasc] 5 mg PO DAILY 01/30/19 06/02/19 History Omeprazole 40 mg PO DAILY #14 capsule. 02/04/19 06/02/19 Rx HYDROcodone/APAP 10-325MG [[place] 1 tab PO BID PRN 06/02/19 06/02/19 History 10-325] Naproxen 500 mg PO DIRECTED PRN 06/02/19 06/02/19 History traZODone HCL 50 mg PO HS PRN 06/02/19 06/02/19 History Allergies Allergy/AdvReac Type Severity Reaction Status Date / Time Penicillins Allergy Anaphylaxis Verified 06/02/19 09:11
[2019-06-04] MEDS ORDERED: VANCOMYCIN IV PER PHARMACY 1 EACH MISC MISCELLANE PRN (10:20)
--- NOTE | 2019-06-04 10:26 | P.HPADDEND ---
H&P Addendum H&P Addendum Date: 06/04/19 Patient has complex pain medication requirements. Regional abdominal wall block advised
[2019-06-04] MEDS: LACTATED RINGERS 1,000 ML IV SCH ×5 (10:39→14:34)
[2019-06-04] MEDS ORDERED: fentaNYL (PF) 50 MCG/ML 2 ML AMP IVP ONE (10:51)
--- NOTE | 2019-06-04 11:02 | P.ANPRN ---
Procedure Note - Anesthesia - Nerve Block Performed Bilateral Transversus Abdominis Date of Procedure: 06/04/19 Procedure Start Time: 10:50 Procedure Stop Time: 10:55 Location of Patient Procedure: PreOp Indication: Acute Post-Operative Pain Sedation Type: Sedate with meaningful contact maintained Preparation: Sterile Prep Position: Supine Catheter: None Needle Types: Pajunk Technique: Ultrasound Injectate: 0.5% Ropivacaine (see comment for volume) Narrative: 30 cc .5% ropivicaine with 4 mg of dexamethasone Blood Aspirated: No Pain Paresthesia on Injection Noted: No Resistance on Injection: Normal Events: Uneventful and Well Tolerated
[2019-06-04] MEDS ORDERED: fentaNYL (PF) 50 MCG/ML 2 ML AMP ONE (11:50)
[2019-06-04] MEDS ORDERED: KETAMINE 10 MG/ML 20 ML VIAL ONE (11:50)
[2019-06-04] MEDS ORDERED: SUCCINYLCHOLINE CHLORIDE 100 MG/5 ML SYR IV ONE (11:50)
[2019-06-04] MEDS ORDERED: MIDAZOLAM 2 MG/2 ML VIAL ONE (11:50)
[2019-06-04] MEDS ORDERED: NEOSTIGMINE 1 MG/ML 10 ML VIAL ONE (11:50)
[2019-06-04] MEDS ORDERED: LIDOCAINE 1% INJ 10MG/ML (20 ML MDV) ONE (11:50)
[2019-06-04] MEDS ORDERED: ROCURONIUM BROMIDE 10 MG/ML 10 ML VIAL IV ONE (11:50)
[2019-06-04] MEDS ORDERED: GLYCOPYRROLATE 0.2 MG/ML 2 ML VIAL ONE (11:50)
[2019-06-04] MEDS ORDERED: PROPOFOL 10 MG/ML 20 ML VIAL IV ONE (11:50)
[2019-06-04] MEDS ORDERED: HYDROmorphone (PF) 1 MG/ML ONE (11:50)
[2019-06-04] MEDS ORDERED: BUPIVACAIN-EPI 0.25%-1:200,000 30 ML VIAL SQ ONE (12:43)
[2019-06-04 14:07] VITALS: TEMP 98.8
[2019-06-04] MEDS ORDERED: ONDANSETRON 4 MG/2 ML VIAL IVP ONE (14:37)
--- NOTE | 2019-06-04 14:37 | P.OP ---
Date of Procedure: 06/04/19 Description of Procedure: SURGEON: BALBIR FUENTES MD PREOPERATIVE DIAGNOSES: 1. Recurrent left inguinal hernia. 2. Chronic pain syndrome 3. Tobacco abuse 4. Hypertensive heart disease 5. Gastroesophageal reflux disease 6. Hyperlipidemia 7. Chronic lower back pain 8. History of MRSA POSTOPERATIVE DIAGNOSES: 1. Recurrent left inguinal hernia. 2. Chronic pain syndrome 3. Tobacco abuse 4. Hypertensive heart disease 5. Gastroesophageal reflux disease 6. Hyperlipidemia 7. Chronic lower back pain 8. History of MRSA 9. Recurrent right inguinal hernia OPERATION: 1. Robotic-assisted da Pilar Xi laparoscopic repair of recurrent incarcerated right direct inguinal hernia with mesh, 11.[address] 2. Robotic-assisted da Pilar Xi laparoscopic repair of recurrent incarcerated left direct inguinal hernia with mesh, 11.[address] ANESTHESIA: General with local anesthetic ESTIMATED BLOOD LOSS: 5 mL. SPECIMENS: 1. Left inguinal hernia sac 2. Right inguinal hernia sac COMPLICATIONS: None. INDICATIONS: The patient is a 43-year-old gentleman who presents with history of recurrent left inguinal hernia Including pain along the left groin. He has prior history of bilateral inguinal hernia performed via open technique. Now presents for definitive surgical intervention. Laparoscopic versus open and robotic approaches were discussed. Benefits and risks including bleeding, infection, injury to the vas deferens as well as sterility and chronic groin pain were reviewed. Placement of mesh was also described. Informed consent was obtained. DESCRIPTION: In the preoperative area, the patient was marked with indelible marker along the left inguinal hernia. The patient was brought to the operating room and initially laid in supine position. The abdomen had been prepped and draped in standard sterile fashion. [place] draping was also placed. Prior to incision, a timeout protocol was confirmed with surgical team regarding patient's name including procedures to be performed and location along the left groin. Initial positioning for the robotic assisted ports were selected whereby 20 cm superior to the target anatomy, 0 degree 5 mm laparoscopic trocar entry was performed at the left upper quadrant. The abdomen was insufflated to 15 mmHg which he had tolerated well. Diagnostic laparoscopy demonstrated no injury to bowel, viscera or mesentery. A defect along the left groin indirect 3-cm was found including along the right side was found, indirect 2-cm. Along the sigmoid colon, moderate large size diverticula were identified. Next, along the epigastrium, 8 mm robot trocar was placed. An 8-mm robotic trocar was placed under direct visualization at the right upper quadrant. An 8 mm port was placed at the left upper quadrant. All trocars were positioned between 10-cm apart from each other. The [employer] for [employer] XI robot was primed, draped, prepared for docking along upper abdomen of the patient. The patient was positioned 16 steep Trendelenburg position I then went to the [employer] for [employer] Xi console. The assistant attorney general was at bedside for exchange of the robot arms and equipment. The left indirect inguinal hernia sac was evaginated whereby the peritoneum was scored using Endo scissors with cautery. Once completely reduced into the abdominal cavity, the peritoneal sac of the hernia was stripped. The sac was resected and then passed off for further pathological analysis. The size of the hernia defect was 3 cm with intraoperative films obtained. Using a 2-0 VLOC, the peritoneal defect of the left inguinal hernia was closed using a running suture separately. The defect was found to be completely closed with complete reduction of the left direct inguinal hernia were confirmed. As an onlay, an 11.[address] mesh by Bard was initially cut in half and entered into the abdominal cavity via the 8 mm trocar. The mesh was tacked to the pelvis using 2-0 VLOC. Next, careful attention along the right groin demonstrated a very small tract with after further inspection confirmed an actively incarcerated right inguinal hernia. An indirect hernia was confirmed 2-cm in size. The right inguinal hernia sac was evaginated whereby the peritoneum was scored using Endo scissors with cautery. Once completely reduced into the abdominal cavity, the peritoneal sac of the hernia was stripped. The sac was resected and then passed off for further pathological analysis. The size of the hernia defect was 2 cm with intraoperative films obtained. Using a 2-0 VLOC, the peritoneal defect of the right inguinal hernia site was closed using a running suture. The defect was found to be completely closed with complete reduction of the right direct inguinal hernia was confirmed. As an onlay, an 11.[address] mesh by Bard was initially cut in half and entered into the abdominal cavity via the 8 mm trocar. The mesh was tacked to the pelvis using 2-0 VLOC sutures. The robot was undocked from the patient's bedside. I then rescrubbed into the case. Insufflation was released from the abdominal cavity and all instruments were removed from the abdominal cavity. The rest of incisions were reapproximated using 4-0 Monocryl in a running subcuticular fashion. Local anesthetic was placed along the incision including for a bilateral groin block. Incisions were cleansed using dilute hydrogen peroxide. Liquid glue was applied to the skin. At the end of the procedure, the needle, sponge and instrument counts had been verified correct by the surgical device sales representative. The patient had tolerated the procedure well and was taken to the postanesthesia care unit in stable condition. FINDINGS: 1. Recurrent right inguinal hernia, 2 cm, indirect. 2. Recurrent left inguinal hernia, 3 cm, indirect Plan - Discharge Summary Discharge Rx Participant: No New Discharge Prescriptions: No Action amLODIPine [Norvasc] 5 mg PO DAILY Atorvastatin [Lipitor] 20 mg PO HS Metoprolol Tartrate [Lopressor] 25 mg PO BID Loratadine [Claritin] 10 mg PO DAILY PRN PRN Reason: allergies Cyclobenzaprine [Flexeril] 10 mg PO BID PRN PRN Reason: Pain Omeprazole 40 mg PO DAILY #14 capsule. traZODone HCL 50 mg PO HS PRN PRN Reason: sleep Naproxen 500 mg PO DIRECTED PRN PRN Reason: Pain HYDROcodone/APAP 10-325MG [[place] 10-325] 1 tab PO BID PRN PRN Reason: Pain Discharge Medication List Atorvastatin [Lipitor] 20 mg PO HS 01/30/19 [History] Cyclobenzaprine [Flexeril] 10 mg PO BID PRN 01/30/19 [History] Loratadine [Claritin] 10 mg PO DAILY PRN 01/30/19 [History] Metoprolol Tartrate [Lopressor] 25 mg PO BID 01/30/19 [History] amLODIPine [Norvasc] 5 mg PO DAILY 01/30/19 [History] Omeprazole 40 mg PO DAILY #14 capsule. 02/04/19 [Rx] HYDROcodone/APAP 10-325MG [[place] 10-325] 1 tab PO BID PRN 06/02/19 [History] Naproxen 500 mg PO DIRECTED PRN 06/02/19 [History] traZODone HCL 50 mg PO HS PRN 06/02/19 [History]
--- NOTE | 2019-06-04 14:37 | P.PN ---
Progress Note - Text Progress Note Date: 06/04/19 Patient is has history of MRSA. We'll give vancomycin perioperatively
[2019-06-04] MEDS ORDERED: VANCOMYCIN 1,000 MG in SODIUM CHLORIDE 0.9% 250 ML IVPB STA (14:39)
[2019-06-04] MEDS ORDERED: TAMSULOSIN 0.4 MG CAP.ER.24H PO ONE (14:45)
[2019-06-04] MEDS ORDERED: IBUPROFEN 200 MG TAB PO ONE (15:17)
[2019-06-04 16:15] VITALS: RESP 18
[2019-06-04 16:16] VITALS: BP 161/77; PULSE 71
== END 2019-06-04 16:35 | disposition home or self-care (01) ==
LOC: OR 09:37
PROVIDERS: ATTEND Surgery Plastic and Reconstructive Surgery
DX: K40.01 Bilateral inguinal hernia, with obstruction, without gangrene, recurrent (principal); M79.89 Other specified soft tissue disorders; K57.30 Diverticulosis of large intestine without perforation or abscess without bleeding; I11.9 Hypertensive heart disease without heart failure; K21.9 Gastro-esophageal reflux disease without esophagitis; E78.5 Hyperlipidemia, unspecified; G89.4 Chronic pain syndrome; M54.5 Low back pain; Z86.14 Personal history of Methicillin resistant Staphylococcus aureus infection; Z79.1 Long term (current) use of non-steroidal anti-inflammatories (NSAID); Z79.891 Long term (current) use of opiate analgesic; Z79.899 Other long term (current) drug therapy; Z88.0 Allergy status to penicillin
CPT/HCPCS: 49651; S2900; 64488; 88302

== ENCOUNTER → 2020-01-25 | Outpatient (CLI) | payer OTHER ==
[2020-01-25 09:24] LABS: Basophils % (A) 0 %; Eosinophils # (A) 0.6 k/uL (0-0.7); Eosinophils % (A) 9 %; HCT 41.7 % (39.0-53.0); HGB 14.2 gm/dL (13.0-17.5); Lymphocytes % (A) 27 %; MCH 32.1 pg (25.0-35.0); MCHC 34.1 g/dL (31.0-37.0); MCV 94.2 fL (80.0-100.0); Mean Platelet Volume 8.5; Monocytes # (A) 0.5 k/uL (0-1.0); Monocytes % (A) 7 %; Neutrophils % (A) 55 %; Platelet Count 194 k/uL (150-450); RBC 4.43 m/uL (4.30-5.90); RDW 12.7 % (11.5-15.5); WBC 7.3 k/uL (3.8-10.6)
[2020-01-25 14:54] LABS: African American GFR (CKD) 131.2 (60.0-200.0); Albumin 4.3 g/dL (3.80-4.90); Albumin/Globulin Ratio 2.26 (1.60-3.17); Anion Gap 9.5 mmol/L (4.00-12.00); Calcium 9.2 mg/dL (8.7-10.3); Carbon Dioxide 28.5 mmol/L (21.6-31.8); Chol/HDL Ratio 2.36; Globulin 1.9 g/dL (1.6-3.3); LDL Cholesterol,Calculated 82.8 mg/dL (0.0-131.0); Non-African American GFR(CKD) 113.2 (60.0-200.0); Potassium 4.5 mmol/L (3.5-5.5); Total Bilirubin 0.4 mg/dL (0.2-1.2); Total Protein 6.2 g/dL (6.2-8.2); VLDL Calculation 11.2 mg/dL (5.00-40.00)
== END | disposition home or self-care (01) ==
LOC: LABWHC1 08:24
PROVIDERS: ATTEND Family Medicine
DX: I10 Essential (primary) hypertension (principal); E78.2 Mixed hyperlipidemia; E55.9 Vitamin D deficiency, unspecified
CPT/HCPCS: 36415; 80053; 80061; 82306; 84443; 84550; 85025

== ENCOUNTER → 2020-07-13 | Outpatient (CLI) | payer OTHER | END | disposition home or self-care (01) | LOC: LABWHC1 14:00 | PROVIDERS: ATTEND Family Medicine | DX: Z20.828 Contact with and (suspected) exposure to other viral communicable diseases (principal) | CPT/HCPCS: U0003; C9803 ==

== ENCOUNTER → 2023-03-26 | Outpatient (CLI) | payer OTHER ==
--- NOTE | 2023-03-26 13:33 | XR ---
EXAMINATION TYPE: XR forearm 2 views LT, XR hand complete 3 views LT, XR wrist complete 4 views LT DATE OF EXAM: 03/26/2023 COMPARISON: NONE HISTORY: 47-year-old male M79.632 M79.642 Left forearm and hand pain FINDINGS: Forearm: No elbow joint effusion. No acute fracture of the more proximal to mid radius or ulna. Wrist: The radiocarpal and distal radioulnar joint as well as the midcarpal compartment appear intact . There appears to be mild soft tissue swelling present. No acute fracture, subluxation, dislocation. Hand: Some irregularity at the tip of the third distal phalangeal tuft. Otherwise, no acute fracture, subluxation, dislocation seen. IMPRESSION: 1. Forearm: No acute osseous abnormality seen. 2. Wrist: Mild soft tissue swelling. No acute osseous abdomen body seen. 3. Hand: Some cortical irregularity involving the tip of the third distal phalangeal tuft. Suspect se quela of old injury or infection. Clinically correlate. No acute osseous abnormality seen.
== END | disposition home or self-care (01) ==
LOC: RADXRMAIN 12:32
PROVIDERS: ATTEND Family Medicine
DX: M79.632 Pain in left forearm (principal); M79.642 Pain in left hand; M79.89 Other specified soft tissue disorders

== ENCOUNTER 2023-05-29 13:08 | Observation (INO) | payer OTHER ==
[2023-05-29] MEDS ORDERED: SODIUM CHLORIDE 0.9% 1,000 ML IV ONE (13:49)
--- NOTE | 2023-05-29 13:53 | ED ---
General Adult HPI - General Chief complaint: Recheck/Abnormal Lab/Rx Stated complaint: High Bp, Sent by Cardio Time Seen by Provider: 05/29/23 13:27 Source: patient Mode of arrival: ambulatory Limitations: no limitations - History of Present Illness Initial comments: The patient's 47-year-old gentleman with a history of GERD, anxiety, gout, hypertension and hyperlipidemia presents emergency room for further evaluation of his elevated blood pressure and chest pain. Patient has had ongoing elevated blood pressure over the last week. Patient recently had his medications changed and was put on a higher dose of metoprolol. He states he was taken off a few other medications. He saw the feller operator Dr. Dunham this morning and was sent in for further evaluation as the patient feels as though something is wrong. Patient has had intermittent chest tightness over the last week. He does admit to occasional anxiety however he states that even when he is calm and relaxed he feels occasional tightness in the chest. He has had a mild cough and joanne estion. He had a headache and body aches 2 days ago. He denies any nausea, vomiting, diarrhea, sick contacts, recent travel, hemoptysis, pain or swelling to the lower extremities. He denies any history of DVT or PE. Patient recently stopped drinking alcohol, about a month ago. He is following up with the counselor to get further help with the anxiety. He was also just started on BuSpar. Patient does admit to smoking cigarettes recently to help with the anxiety. He denies any alcohol withdrawal symptoms. Denies any alcohol withdrawal seizures. He states he did receive the flu and Covid vaccines. -: week(s) (1) Location: chest Radiation: non-radiation Quality: other (tightness) Consistency: intermittent - Related Data Home Medications Medication Instructions Recorded Confirmed Atorvastatin [Lipitor] 20 mg PO HS 01/30/19 05/29/23 Loratadine [Claritin] 10 mg PO DAILY 01/30/19 05/29/23 traZODone HCL 50 mg PO HS PRN 06/02/19 05/29/23 Aspirin/Acetaminophen/Caffeine 2 tab PO TID PRN 05/29/23 05/29/23 [Excedrin Migraine Caplet] Calcium Carbonate/Vitamin D3 1 tab PO BID 05/29/23 05/29/23 [Calcium 600 mg-D3 20 mcg (800 unit)] Fluticasone Nasal [place] [Flonase 1 spray EA NOSTRIL DAILY PRN 05/29/23 05/29/23 Nasal [place]] Metoprolol Succinate (ER) [Toprol 50 mg PO DAILY 05/29/23 05/29/23 Xl] allopurinoL [Zyloprim] 100 mg PO DAILY 05/29/23 05/29/23 busPIRone HCl [Buspar] 10 mg PO BID 05/29/23 05/29/23 Previous Rx's Medication Instructions Recorded Omeprazole 40 mg PO DAILY #14 capsule. 02/04/19 Allergies Allergy/AdvReac Type Severity Reaction Status Date / Time Penicillins Allergy Anaphylaxis Verified 05/29/23 14:56 Review of Systems ROS Statement: Those systems with pertinent positive or pertinent negative responses have been documented in the HPI. ROS Other: All systems not noted in ROS Statement are negative. Past Medical History Past Medical History: GERD/Reflux, Hyperlipidemia, Hypertension Additional Past Medical History / Comment(s): "chronic pain symdrome" History of Any Multi-Drug Resistant Organisms: MRSA Date of last positivie culture/infection: 11/30/15 MDRO Source:: Right Arm Past Surgical History: Hernia Repair, Orthopedic Surgery Additional Past Surgical History / Comment(s): left inguinal hernia, arthroscopy rt knee, Past Anesthesia/Blood Transfusion Reactions: No Reported Reaction Past Psychological History: No Psychological Hx Reported Smoking Status: Current every day smoker Past Alcohol Use History: None Reported Past Drug Use History: Marijuana - Past Family History Mother Family Medical History: No Reported History General Exam Limitations: no limitations General appearance: alert, anxious Head exam: Present: atraumatic Expanded Ear exam: Present: normal external inspection Neck exam: Present: normal inspection Respiratory exam: Present: normal lung sounds bilaterally Cardiovascular Exam: Present: tachycardia Neurological exam: Present: alert, altered, oriented X3 Psychiatric exam: Present: anxious Skin exam: Present: warm, dry Course Vital Signs 05/29/23 05/29/23 05/29/23 13:23 14:10 16:15 Temperature 99.3 F Pulse Rate 89 91 91 Respiratory 20 18 18 Rate Blood Pressure 186/123 146/82 149/93 O2 Sat by Pulse 97 98 97 Oximetry - Reevaluation(s) Reevaluation #1: 05/29/23 2627 Patient's operating in the emergency room. He is much more calm and reevaluation. His heart rate is 97. He is feeling well at this time. Discussed lab and imaging results with patient. Chest x-ray is negative for any obvious pneumonia, pneumothorax or pleural effusion. He is positive for cultivated likely contributing to the cough congestion and body aches. Patient's labs including troponin are within normal limits and no EKG changes. I discussed admission for cardiac evaluation with the patient. He understands and agrees to this plan. - Consultations Consultation #1: Spoke with Dr. Garcia for [facility] hospitalist group regarding admission for cardiac evaluation. EKG Findings - EKG Comments: EKG Findings:: EKG shows sinus tachycardia rate of [address] segment elevation changes Medical Decision Making - Medical Decision Making Was pt. sent in by a medical professional or institution (, PA, FUNERAL HOME GENERAL MANAGER, urgent care, hospital, or assisted...) When possible be specific @ -patient sent in by feller operator Did you speak to anyone other than the patient for history (EMS, parent, family, police, friend...)? What history was obtained from this source @ -[No] Did you review nursing and triage notes (agree or disagree)? Why? @ -[I reviewed and agree with nursing and triage notes] Were old charts reviewed (outside hosp., previous admission, EMS record, old EKG, old radiological studies, urgent care reports/EKG's, assisted records)? Report findings @ -Assaulters were reviewed Differential Diagnosis (chest pain, altered mental status, abdominal pain women, abdominal pain men, vaginal bleeding, weakness, fever, dyspnea, syncope, headache, dizziness, GI bleed, back pain, seizure, CVA, palpatations, mental health, musculoskeletal)? @ -Angina, DE, pleuritic chest pain, COVID, influenza, upper respiratory infection EKG interpreted by me (3pts min.). @ -EKG shows sinus tachycardia and no acute ST segment elevation or T-wave changes, rate of 1 13 bpm X-rays interpreted by me (1pt min.). @ -Chest x-ray is negative for any pneumonia, pneumothorax, mass or other acute changes. Radiology report pending for confirmation of acute changes. CT interpreted by me (1pt min.). @ -[None done] U/S interpreted by me (1pt. min.). @ -[None done] What testing was considered but not performed or refused? (CT, X-rays, U/S, labs)? Why? @ -[None] What meds were considered but not given or refused? Why? @ -[None] Did you discuss the management of the patient with other professionals (professionals i.e. , PA, FUNERAL HOME GENERAL MANAGER, lab, RT, psych nurse, child protective services social worker, scrap hooker, teacher, environmental conservation officer, trimming caser)? Give summary @ -Discussed patient's symptoms are An admission plan with Dr. Valencia, attending ED physician Was smoking cessation discussed for >3mins.? @ -[No] Was critical care preformed (if so, how long)? @ -[No] Were there social determinants of health that impacted care today? How? (Homelessness, low income, unemployed, alcoholism, drug addiction, transportation, low edu. Level, literacy, decrease access to med. care, usp, rehab)? @ -Recent change in alcohol use and smoking Was there de-escalation of care discussed even if they declined (Discuss DNR or withdrawal of care, Hospice)? DNR status @ -[No] What co-morbidities impacted this encounter? (DM, HTN, Smoking, COPD, CAD, Cancer, CVA, ARF, Chemo, Hep., AIDS, mental health diagnosis, sleep apnea, morbid obesity)? @ -Hypertension, hyperlipidemia, smoking Was patient admitted / discharged? Hospital course, mention meds given and route, prescriptions, significant lab abnormalities, going to OR and other pertinent info. @ -Patient will be admitted for cardiac evaluation. Undiagnosed new problem with uncertain prognosis? @ -Yes, COVID-19 Drug Therapy requiring intensive monitoring for toxicity (Heparin, Nitro, Insulin, Cardizem)? @ -[No] Were any procedures done? @ -[No] Diagnosis/symptom? @ -Covid 19, chest pain, cardiac rule out Acute, or Chronic, or Acute on Chronic? @ -Acute Uncomplicated (without systemic symptoms) or Complicated (systemic symptoms)? @ -[default] Side effects of treatment? @ -[No] Exacerbation, Progression, or Severe Exacerbation? @ -[No] Poses a threat to life or bodily function? How? (Chest pain, USA, DE, pneumonia, PE, COPD, DKA, ARF, appy, cholecystitis, CVA, Diverticulitis, Homicidal, Suicidal, threat to staff... and all critical care pts) @ -[No] - Lab Data Result diagrams: 05/29/23 14:04 05/29/23 14:04 Lab Results 05/29/23 05/29/23 05/29/23 Range/Units 14:04 14:04 14:04 WBC 7.1 (3.8-10.6) k/uL RBC 3.66 L (4.30-5.90) m/uL Hgb 12.6 L (13.0-17.5) gm/dL Hct 35.9 L (39.0-53.0) % MCV 98.0 (80.0-100.0) fL MCH 34.5 (25.0-35.0) pg MCHC 35.2 (31.0-37.0) g/dL RDW 13.2 (11.5-15.5) % Plt Count 210 (150-450) k/uL MPV 8.1 Neutrophils % 75 % Lymphocytes % 14 % Monocytes % 7 % Eosinophils % 1 % Basophils % 0 % Neutrophils # 5.3 (1.3-7.7) k/uL Lymphocytes # 1.0 (1.0-4.8) k/uL Monocytes # 0.5 (0-1.0) k/uL Eosinophils # 0.1 (0-0.7) k/uL Basophils # 0.0 (0-0.2) k/uL Sodium 137 (137-145) mmol/L Potassium 3.9 (3.5-5.1) mmol/L Chloride 104 (98-107) mmol/L Carbon Dioxide 27 (22-30) mmol/L Anion Gap 6 mmol/L BUN 13 (9-20) mg/dL Creatinine 0.78 (0.66-1.25) mg/dL Est GFR (CKD-EPI)AfAm >90 (>60 ml/min/1.73 sqM) Est GFR (CKD-EPI)NonAf >90 (>60 ml/min/1.73 sqM) Glucose 114 H (74-99) mg/dL Plasma Lactic Acid Arsenio 1.0 (0.7-2.0) mmol/L Calcium 9.0 (8.4-10.2) mg/dL Total Bilirubin 0.3 (0.2-1.3) mg/dL AST 50 (17-59) U/L ALT 46 (4-49) U/L Alkaline Phosphatase 92 (38-126) U/L Troponin I (0.000-0.034) ng/mL NT-Pro-B Natriuret Pep 169 pg/mL Total Protein 6.4 (6.3-8.2) g/dL Albumin 3.8 (3.5-5.0) g/dL Coronavirus (PCR) (Not Detectd) Influenza Type A RNA (Not Detectd) Influenza Type B (PCR) (Not Detectd) 05/29/23 05/29/23 05/29/23 Range/Units 14:04 14:04 14:28 WBC (3.8-10.6) k/uL RBC (4.30-5.90) m/uL Hgb (13.0-17.5) gm/dL Hct (39.0-53.0) % MCV (80.0-100.0) fL MCH (25.0-35.0) pg MCHC (31.0-37.0) g/dL RDW (11.5-15.5) % Plt Count (150-450) k/uL MPV Neutrophils % % Lymphocytes % % Monocytes % % Eosinophils % % Basophils % % Neutrophils # (1.3-7.7) k/uL Lymphocytes # (1.0-4.8) k/uL Monocytes # (0-1.0) k/uL Eosinophils # (0-0.7) k/uL Basophils # (0-0.2) k/uL Sodium (137-145) mmol/L Potassium (3.5-5.1) mmol/L Chloride (98-107) mmol/L Carbon Dioxide (22-30) mmol/L Anion Gap mmol/L BUN (9-20) mg/dL Creatinine (0.66-1.25) mg/dL Est GFR (CKD-EPI)AfAm (>60 ml/min/1.73 sqM) Est GFR (CKD-EPI)NonAf (>60 ml/min/1.73 sqM) Glucose (74-99) mg/dL Plasma Lactic Acid Arsenio (0.7-2.0) mmol/L Calcium (8.4-10.2) mg/dL Total Bilirubin (0.2-1.3) mg/dL AST (17-59) U/L ALT (4-49) U/L Alkaline Phosphatase (38-126) U/L Troponin I <0.012 (0.000-0.034) ng/mL NT-Pro-B Natriuret Pep pg/mL Total Protein (6.3-8.2) g/dL Albumin (3.5-5.0) g/dL Coronavirus (PCR) Detected A (Not Detectd) Influenza Type A RNA Not Detected (Not Detectd) Influenza Type B (PCR) Not Detected (Not Detectd) - EKG Data -: EKG Interpreted by Me Disposition Clinical Impression: Chest pain, COVID-19, Hypertension Disposition: ADMITTED IP TO THIS [facility] Condition: Good Is patient prescribed a controlled substance at d/c from ED?: No Referrals: Catia De Paz MD [Primary Care Provider] - 1-2 days Time of Disposition: 13:00 Decision to Admit Reason: Admit from EC Decision Date: 05/29/23 Decision Time: 13:00 - Out of Hospital Transfer - Req. Specs Out of Hospital Transfer - Requested Specifics: Telemetry Unit (admit to [facility] hospitalist)
[2023-05-29 14:17] LABS: Basophils % (A) 0 %; Eosinophils # (A) 0.1 k/uL (0-0.7); Eosinophils % (A) 1 %; HCT 35.9 % (39.0-53.0); HGB 12.6 gm/dL (13.0-17.5); Lymphocytes % (A) 14 %; MCH 34.5 pg (25.0-35.0); MCHC 35.2 g/dL (31.0-37.0); Mean Platelet Volume 8.1; Monocytes # (A) 0.5 k/uL (0-1.0); Monocytes % (A) 7 %; Neutrophils # (A) 5.3 k/uL (1.3-7.7); Neutrophils % (A) 75 %; Platelet Count 210 k/uL (150-450); RBC 3.66 m/uL (4.30-5.90); RDW 13.2 % (11.5-15.5); WBC 7.1 k/uL (3.8-10.6)
--- NOTE | 2023-05-29 14:45 | XR ---
EXAMINATION TYPE: XR chest 2V DATE OF EXAM: 05/29/2023 COMPARISON: NONE TECHNIQUE: PA and lateral views submitted. HISTORY: Chest pain FINDINGS: The lungs are clear and there is no pneumothorax, pleural effusion, or focal pneumonia. Heart size normal and no overt failure. Osseous structures demonstrate hypertrophic and degenerative changes of the spine. Hyperinflation suggests COPD. Biapical pleural thickening. IMPRESSION: 1. No acute process. Correlate for COPD.
[2023-05-29 14:52] LABS: ALT 46 U/L (4-49); AST 50 U/L (17-59); African American GFR (CKD) >90 (>60 ml/min/1.73 sqM); Albumin 3.8 g/dL (3.5-5.0); Alkaline Phosphatase 92 U/L (38-126); Anion Gap 6 mmol/L; Blood Urea Nitrogen 13 mg/dL (9-20); Carbon Dioxide 27 mmol/L (22-30); Chloride 104 mmol/L (98-107); Glucose 114 mg/dL (74-99); Non-African American GFR(CKD) >90 (>60 ml/min/1.73 sqM); Potassium 3.9 mmol/L (3.5-5.1); Sodium 137 mmol/L (137-145); Total Bilirubin 0.3 mg/dL (0.2-1.3); Total Protein 6.4 g/dL (6.3-8.2)
[2023-05-29 15:00] LABS: NT-Pro-B-Type Natriuretic Pept 169 pg/mL
[2023-05-29] MEDS ORDERED: NITROGLYCERIN SL TABS 0.4 MG TAB SUBLINGUAL PRN (15:50)
[2023-05-29] MEDS ORDERED: ASPIRIN 81 MG PO STA (15:50)
[2023-05-29] MEDS: MORPHINE SULFATE 4 MG/ML SYRINGE IV PRN ×2 (16:29→23:21)
[2023-05-29] MEDS ORDERED: METOPROLOL TARTRATE 25 MG TAB PO SCH (21:00)
[2023-05-29] MEDS ORDERED: traZODone HCL 50 MG TAB PO PRN (23:37)
--- NOTE | 2023-05-30 00:18 | P.HPIM ---
History of Present Illness H&P Date: 05/29/23 Chief Complaint: Chest pain Patient is a 47-year-old male with history of hypertension, hyperlipidemia, chronic pain syndrome, history of left inguinal hernia repair and currently everyday smoker and marijuana use presents to ER with complaints of chest pain and elevated blood pressure. Patient states that he has been having ongoing issues with blood pressure over the last 1 week. Patient states that he recently had cardiac work-up including stress test in the office. Patient is on follow-up with his movement therapist Dr. Dunham and was seen in the clinic due to complaints of intermittent chest tightness and pain. Patient was recently taken off his blood pressure medications and was started on metoprolol XL 50 mg daily. Patient states that he woke up on Saturday morning with throbbing headache and pounding heart and felt very sweaty. Since then he is not feeling well and has been having congested cough and patient states that he felt like he was having allergies. Denies any complaints of fever or chills. No nausea vomiting or diarrhea. Denies any recent travel or sick contacts. Patient is also having issues with anxiety. Patient has a counselor. Patient states that he quit alcohol about a month ago and is still smoking and using marijuana. Patient states that he did take COVID-vaccine. Chest x-ray showed no acute process. Correlate for COPD. EKG showed sinus tachycardia. Laboratory data showed WBC 7.1 hemoglobin 12.6 and platelets 210 Sodium 137 potassium 3.9 chloride 104 bicarb is 27 BUN 13 and creatinine 0.78 blood sugar 114 Troponin x3 negative and proBNP is 169 gloriously not elevated. COVID-19 PCR detected. Review of Systems Constitutional: Patient denies any fever or chills . no Generalized weakness. Abdomen: Patient denied any nausea or vomiting or abd. pain Cardiovascular: Patient complains of intermittent chest pain and short of breath no palpitations. No leg swelling. Respiratory: patient complains of congested cough without sputum production. Did have shortness of breath Neurologic: Patient denied any numbness or tingling headache. Musculoskeletal: Patient denies any complaints of joint swelling or deformity. Skin: Negative Psychiatric: Negative Endocrine: No heat or cold intolerance. No recent weight gain. Genitourinary: No dysuria or hematuria. All other 14 point ROS negative except the above Past Medical History Past Medical History: GERD/Reflux, Hyperlipidemia, Hypertension Additional Past Medical History / Comment(s): "chronic pain symdrome" History of Any Multi-Drug Resistant Organisms: MRSA Date of last positivie culture/infection: 11/30/15 MDRO Source:: Right Arm Past Surgical History: Hernia Repair, Orthopedic Surgery Additional Past Surgical History / Comment(s): left inguinal hernia, arthroscopy rt knee, Past Anesthesia/Blood Transfusion Reactions: No Reported Reaction Past Psychological History: No Psychological Hx Reported Smoking Status: Current every day smoker Past Alcohol Use History: None Reported Past Drug Use History: Marijuana - Past Family History Mother Family Medical History: No Reported History Medications and Allergies Home Medications Medication Instructions Recorded Confirmed Type Atorvastatin [Lipitor] 20 mg PO HS 01/30/19 05/29/23 History Loratadine [Claritin] 10 mg PO DAILY 01/30/19 05/29/23 History Omeprazole 40 mg PO DAILY #14 capsule. 02/04/19 05/29/23 Rx traZODone HCL 50 mg PO HS PRN 06/02/19 05/29/23 History Aspirin/Acetaminophen/Caffeine 2 tab PO TID PRN 05/29/23 05/29/23 History [Excedrin Migraine Caplet] Calcium Carbonate/Vitamin D3 1 tab PO BID 05/29/23 05/29/23 History [Calcium 600 mg-D3 20 mcg (800 unit)] Fluticasone Nasal [place] [Flonase 1 spray EA NOSTRIL DAILY PRN 05/29/23 05/29/23 History Nasal [place]] Metoprolol Succinate (ER) [Toprol 50 mg PO DAILY 05/29/23 05/29/23 History Xl] allopurinoL [Zyloprim] 100 mg PO DAILY 05/29/23 05/29/23 History busPIRone HCl [Buspar] 10 mg PO BID 05/29/23 05/29/23 History Allergies Allergy/AdvReac Type Severity Reaction Status Date / Time Penicillins Allergy Anaphylaxis Verified 05/29/23 14:56 Physical Exam Vitals: Vital Signs Temp Pulse Pulse Resp BP BP Pulse Ox 05/29/23 22:53 76 176/99 05/29/23 21:30 98.5 F 74 17 185/91 100 05/29/23 20:50 86 18 148/85 97 05/29/23 19:25 93 18 148/83 98 05/29/23 18:03 97.8 F 83 18 141/96 96 05/29/23 16:15 91 18 149/93 97 05/29/23 14:10 91 18 146/82 98 05/29/23 13:23 99.3 F 89 20 186/123 97 Intake and Output 05/29/23 05/29/23 05/30/23 14:59 22:59 06:59 Other: # Voids 1 Weight 72.575 kg 72.575 kg PHYSICAL EXAMINATION: Patient is lying in the bed comfortably, no acute distress, awake alert and oriented.. HEENT: Normocephalic. Neck is supple. Pupils reactive. Nostrils clear. Oral cavity is moist. Neck reveals no JVD, carotid bruits, or thyromegaly. CHEST EXAMINATION: Trachea is central. Symmetrical expansion. Lung chowdhury clear to auscultation and percussion. CARDIAC: Normal S1, S2 with no gallops. No murmurs ABDOMEN: Soft. Bowel sounds present. Nontender. No organomegaly. No abdominal bruits. Extremities: reveal no edema. No clubbing or cyanosis Neurologically awake, alert, oriented x3 with well-coordinated movements. No focal deficits noted Skin: No rash or skin lesions. Psychiatric: Patient is anxious and agitated at times., Musculoskeletal: No joint swelling or deformity. Normal range of motion. Results CBC & Chem 7: 05/29/23 14:04 05/29/23 14:04 Labs: Abnormal Lab Results - Last 24 Hours (Table) 05/29/23 05/29/23 05/29/23 Range/Units 14:04 14:04 14:28 RBC 3.66 L (4.30-5.90) m/uL Hgb 12.6 L (13.0-17.5) gm/dL Hct 35.9 L (39.0-53.0) % Glucose 114 H (74-99) mg/dL Coronavirus (PCR) Detected A (Not Detectd) Thrombosis Risk Factor Assmnt - DVT/VTE Prophylaxis DVT/VTE Prophylaxis: Pharmacologic Prophylaxis ordered - Choose All That Apply Any of the Below Risk Factors Present?: Yes Each Factor Represents 1 point: Age 41-60 years Other Risk Factors: No Other congenital or acquired thrombophilia - If yes, enter type in comment: No Thrombosis Risk Factor Assessment Total Risk Factor Score: 1 Thrombosis Risk Factor Assessment Level: Low Risk Assessment and Plan Assessment: Acute COVID-19 infection Intermittent chest pain likely pleuritic. Rule out ACS. Generalized anxiety Chronic pain syndrome Hypertension uncontrolled Hyperlipidemia GERD Currently everyday smoker and marijuana use History of alcohol use Prior history of inguinal hernia repair DVT prophylaxis with Lovenox subcu Plan: Patient will be continued on telemetry monitoring. Serial EKG and troponin x3 negative. Was started back on metoprolol and titrate blood pressure medications as needed. Follow-up D-dimer level. Ordered procalcitonin level, LDH and CRP level. Continue with multivitamin supplementation. Patient states that he did have recently cardiac work-up including stress test. Cardiology was consulted for evaluation. Continue to follow closely. Continue with contact and droplet precautions. Time with Patient: Greater than 30
[2023-05-30] MEDS: busPIRone HCl 10 MG TAB PO SCH ×4 (00:59→21:16)
[2023-05-30] MEDS: LISINOPRIL-HCTZ 10-12.5 MG 1 EACH TAB PO SCH ×2 (00:59→10:02)
[2023-05-30] MEDS: MORPHINE SULFATE 4 MG/ML SYRINGE IV PRN ×2 (06:03→10:18)
[2023-05-30 08:28] VITALS: RESP 16
[2023-05-30] MEDS ORDERED: ASPIRIN 325 MG TAB PO SCH (09:00)
--- NOTE | 2023-05-30 09:48 | P.CRDCN ---
History of Present Illness History of present illness: CHIEF COMPLAINT: Hypertension HISTORY OF PRESENT ILLNESS: This is a 47-year-old male with a past medical history significant for hypertension and hyperlipidemia. Patient follows in the office with Dr. Dunham. We have been asked to see the patient in consultation for hypertension and chest pain. Patient examined at the bedside. Patient was at the cardiology office yesterday with vague complaints of chest discomfort and shortness of breath. He was found to have elevated blood pressures and advised to come to the emergency room. The patient was found to be positive for Covid 19. Patient was started on lisinopril-hydrochlorothiazide in addition to his metoprolol. His blood pressures are improved this morning with a reading of 159/93. * EKG reveals sinus tachycardia with no signs of acute ischemia * Chest xray negative for acute process. Correlate for COPD. * Laboratory data: WBC 7.1. Hemoglobin 12.6. platelet count 210. D-dimer 0 .19. Sodium 134. Potassium 3.9. proBNP 169. Troponin negative 3. * Current home cardiac medications include Lipitor 20 mg at night and metoprolol succinate 50 mg daily * Most recent echocardiogram obtained in the office in January 2023 revealed ejection fraction 60%, mild TR, mild AR * Patient underwent stress test in January 2023 at the office which was negative for stress-induced ischemia REVIEW OF SYSTEMS: Thorough review of systems not completed secondary to limited evalu ation/examination due to Covid19 PHYSICAL EXAM: Thorough physical exam not completed secondary to limited evaluation/examination due to Covid19 ASSESSMENT: Covid 19 Hypertension, uncontrolled Chest pain, troponin negative x3, ACS ruled out Hyperlipidemia Nicotine dependence PLAN: No need to repeat echocardiogram as this was performed in the office in January 2023 Continue home dose of metoprolol succinate 50 mg daily Continue lisinopril-hydrochlorothiazide Continue to monitor blood pressure Secondary hypertension workup Further recommendations pending patient's course Nurse practitioner note has been reviewed by physician. Signing provider agrees with the documented findings, assessment, and plan of care. Past Medical History Past Medical History: GERD/Reflux, Hyperlipidemia, Hypertension Additional Past Medical History / Comment(s): "chronic pain symdrome" History of Any Multi-Drug Resistant Organisms: MRSA Date of last positivie culture/infection: 11/30/15 MDRO Source:: Right Arm Past Surgical History: Hernia Repair, Orthopedic Surgery Additional Past Surgical History / Comment(s): left inguinal hernia, arthroscopy rt knee, Past Anesthesia/Blood Transfusion Reactions: No Reported Reaction Past Psychological History: No Psychological Hx Reported Smoking Status: Current every day smoker Past Alcohol Use History: None Reported Past Drug Use History: Marijuana - Past Family History Mother Family Medical History: No Reported History Medications and Allergies Home Medications Medication Instructions Recorded Confirmed Type Atorvastatin [Lipitor] 20 mg PO HS 01/30/19 05/29/23 History Loratadine [Claritin] 10 mg PO DAILY 01/30/19 05/29/23 History Omeprazole 40 mg PO DAILY #14 capsule. 02/04/19 05/29/23 Rx traZODone HCL 50 mg PO HS PRN 06/02/19 05/29/23 History Aspirin/Acetaminophen/Caffeine 2 tab PO TID PRN 05/29/23 05/29/23 History [Excedrin Migraine Caplet] Calcium Carbonate/Vitamin D3 1 tab PO BID 05/29/23 05/29/23 History [Calcium 600 mg-D3 20 mcg (800 unit)] Fluticasone Nasal [place] [Flonase 1 spray EA NOSTRIL DAILY PRN 05/29/23 05/29/23 History Nasal [place]] Metoprolol Succinate (ER) [Toprol 50 mg PO DAILY 05/29/23 05/29/23 History Xl] allopurinoL [Zyloprim] 100 mg PO DAILY 05/29/23 05/29/23 History busPIRone HCl [Buspar] 10 mg PO BID 05/29/23 05/29/23 History Allergies Allergy/AdvReac Type Severity Reaction Status Date / Time Penicillins Allergy Anaphylaxis Verified 05/29/23 14:56 Physical Exam Vitals: Vital Signs Temp Pulse Pulse Resp BP BP Pulse Ox 05/30/23 07:00 98.6 F 85 16 159/93 99 05/30/23 02:35 99.1 F 95 15 134/83 99 05/30/23 00:54 99.1 F 98 171/87 97 05/29/23 23:30 98 18 05/29/23 22:53 76 176/99 05/29/23 21:30 98.5 F 74 17 185/91 100 05/29/23 20:50 86 18 148/85 97 05/29/23 19:25 93 18 148/83 98 05/29/23 18:03 97.8 F 83 18 141/96 96 05/29/23 16:15 91 18 149/93 97 05/29/23 14:10 91 18 146/82 98 05/29/23 13:23 99.3 F 89 20 186/123 97 Intake and Output 05/29/23 05/30/23 05/30/23 22:59 06:59 14:59 Other: Voiding Method Toilet # Voids 1 2 Weight 72.575 kg Results 05/29/23 14:04 05/29/23 14:04 Cardiac Enzymes 05/29/23 05/29/23 05/29/23 Range/Units 14:04 14:04 16:35 AST 50 (17-59) U/L Troponin I <0.012 <0.012 (0.000-0.034) ng/mL 05/29/23 Range/Units 20:05 AST (17-59) U/L Troponin I <0.012 (0.000-0.034) ng/mL CBC 05/29/23 Range/Units 14:04 WBC 7.1 (3.8-10.6) k/uL RBC 3.66 L (4.30-5.90) m/uL Hgb 12.6 L (13.0-17.5) gm/dL Hct 35.9 L (39.0-53.0) % Plt Count 210 (150-450) k/uL Comprehensive Metabolic Panel 05/29/23 Range/Units 14:04 Sodium 137 (137-145) mmol/L Potassium 3.9 (3.5-5.1) mmol/L Chloride 104 (98-107) mmol/L Carbon Dioxide 27 (22-30) mmol/L BUN 13 (9-20) mg/dL Creatinine 0.78 (0.66-1.25) mg/dL Glucose 114 H (74-99) mg/dL Calcium 9.0 (8.4-10.2) mg/dL AST 50 (17-59) U/L ALT 46 (4-49) U/L Alkaline Phosphatase 92 (38-126) U/L Total Protein 6.4 (6.3-8.2) g/dL Albumin 3.8 (3.5-5.0) g/dL Current Medications Generic Name Dose Route Start Last Admin Trade Name Freq PRN Reason Stop Dose Admin Allopurinol 100 mg 05/30/23 09:00 Allopurinol 100 Mg Tab PO DAILY [facility] Ascorbic Acid 500 mg 05/30/23 09:00 Ascorbic Acid 500 Mg Tab PO DAILY [facility] Aspirin 81 mg 05/30/23 09:00 Aspirin 81 Mg PO DAILY [facility] Atorvastatin Calcium 20 mg 05/30/23 21:00 Atorvastatin 20 Mg Tab PO HS [facility] Buspirone HCl 10 mg 05/29/23 23:45 05/30/23 00:59 Buspirone Hcl 10 Mg Tab PO 10 mg BID [facility] Administration Cholecalciferol 25 mcg 05/30/23 09:00 Cholecalciferol 25 Mcg (1000 Iu) Tablet PO DAILY [facility] Enoxaparin Sodium 40 mg 05/30/23 09:00 Enoxaparin 40 Mg/0.4 Ml Syringe SQ DAILY [facility] Lisinopril/HCTZ 1 each 05/29/23 23:45 05/30/23 00:59 Lisinopril-Hctz 10-12.5 Mg 1 Each Tab PO 1 each DAILY [facility] Administration Metoprolol Succinate 50 mg 05/30/23 09:00 Metoprolol Succinate (Er) 50 Mg Tab.Er.24h PO DAILY [facility] Morphine Sulfate 4 mg 05/29/23 15:50 05/30/23 06:03 Morphine Sulfate 4 Mg/Ml Syringe IV 4 mg Q4HR PRN Administration Chest Pain Nitroglycerin 0.4 mg 05/29/23 15:50 Nitroglycerin Sl Tabs 0.4 Mg Tab SUBLINGUAL Q5M PRN Chest Pain Pantoprazole Sodium 40 mg 05/30/23 09:00 Pantoprazole 40 Mg Tablet PO DAILY [facility] Trazodone HCl 50 mg 05/29/23 23:37 Trazodone Hcl 50 Mg Tab PO HS PRN sleep Zinc Sulfate 220 mg 05/30/23 09:00 Zinc Sulfate 220 Mg Cap PO DAILY [facility] Intake and Output 05/29/23 05/30/23 05/30/23 22:59 06:59 14:59 Other: Voiding Method Toilet # Voids 1 2 Weight 72.575 kg 05/29/23 14:04 05/29/23 14:04
[2023-05-30] MEDS: PANTOPRAZOLE 40 MG TABLET PO SCH (10:01)
[2023-05-30] MEDS: ASCORBIC ACID 500 MG TAB PO SCH (10:01)
[2023-05-30] MEDS: CHOLECALCIFEROL 25 MCG (1000 IU) TABLET PO SCH (10:01)
[2023-05-30] MEDS: allopurinoL 100 MG TAB PO SCH (10:01)
[2023-05-30] MEDS: ZINC SULFATE 220 MG CAP PO SCH (10:01)
[2023-05-30] MEDS: METOPROLOL SUCCINATE (ER) 50 MG TAB.ER.24H PO SCH (10:01)
[2023-05-30] MEDS: ASPIRIN 81 MG PO SCH (10:01)
[2023-05-30] MEDS: ENOXAPARIN 40 MG/0.4 ML SYRINGE SQ SCH (10:02)
[2023-05-30 10:57] LABS: Basophils # (A) 0.02 X 10*3/uL (0.00-0.10); Basophils % (A) 0.2 %; Eosinophils # (A) 0.36 X 10*3/uL (0.04-0.35); Eosinophils % (A) 4.4 %; HCT 37.5 % (39.6-50.0); Lymphocytes # (A) 1.57 X 10*3/uL (0.90-5.00); Lymphocytes % (A) 19.3 %; MCH 33.9 pg (27.0-32.0); MCHC 34.7 d/dL (32.0-37.0); MCV 97.7 FL (80.0-97.0); Mean Platelet Volume 10.8 FL (9.5-12.2); Monocytes # (A) 0.79 X 10*3/uL (0.20-1.00); Monocytes % (A) 9.7 %; NRBC Per 100 WBC 0 X 10*3/uL (0.00-0.01); Neutrophils # (A) 5.38 X 10*3/uL (1.80-7.70); Neutrophils % (A) 66.2 %; Platelet Count 252 X 10*3/uL (140-440); RBC 3.84 X 10*6/uL (4.40-5.60); RDW 13.2 % (11.5-14.5); WBC 8.14 X 10*3/uL (4.50-10.00)
[2023-05-30 11:38] LABS: BUN/Creat Ratio 12.43 Ratio (12.00-20.00); Blood Urea Nitrogen 8.7 mg/dL (9.0-27.0); Calcium 9.1 mg/dL (8.7-10.3); Carbon Dioxide 25.4 mmol/L (21.6-31.8); Chloride 102 mmol/L (96-109); Glucose 86 mg/dL (70-110); LDH 217 U/L (120-246); Sodium 139 mmol/L (135-145); VLDL Calculation 18.22 mg/dL (5.00-40.00)
[2023-05-30 11:41] LABS: Chol/HDL Ratio 1.78 Ratio; LDL Cholesterol,Calculated 39.2 mg/dL (0.0-131.0)
[2023-05-30] MEDS ORDERED: lisinopriL 10 MG TAB PO STA (14:01)
[2023-05-30] MEDS: IBUPROFEN 600 MG TAB PO PRN (17:15)
[2023-05-30] MEDS: guaiFENesin 600 MG TABLET.ER PO SCH ×2 (17:15→21:20)
--- NOTE | 2023-05-30 20:45 | P.PN ---
Subjective Progress Note Date: 05/30/23 Patient is a 47-year-old male with history of hypertension, hyperlipidemia, chronic pain syndrome, history of left inguinal hernia repair and currently everyday smoker and marijuana use presents to ER with complaints of chest pain and elevated blood pressure. Patient states that he has been having ongoing issues with blood pressure over the last 1 week. Patient states that he recently had cardiac work-up including stress test in the office. Patient is on follow-up with his metaphysicist Dr. Dunham and was seen in the clinic due to complaints of intermittent chest tightness and pain. Patient was recently taken off his blood pressure medications and was started on metoprolol XL 50 mg daily. Patient states that he woke up on Saturday morning with throbbing headache and pounding heart and felt very sweaty. Since then he is not feeling well and has been having congested cough and patient states that he felt like he was having allergies. Denies any complaints of fever or chills. No nausea vomiting or diarrhea. Denies any recent travel or sick contacts. Patient is also having issues with anxiety. Patient has a counselor. Patient states that he quit alcohol about a month ago and is still smoking and using marijuana. Patient states that he did take COVID-vaccine. Chest x-ray showed no acute process. Correlate for COPD. EKG showed sinus tachycardia. Laboratory data showed WBC 7.1 hemoglobin 12.6 and platelets 210 Sodium 137 potassium 3.9 chloride 104 bicarb is 27 BUN 13 and creatinine 0.78 blood sugar 114 Troponin x3 negative and proBNP is 169 not elevated. COVID-19 PCR detected. 05/30/2023 Patient is seen and evaluated in follow-up this morning with cardiology following. Ordered a renal artery Doppler which is pending at this time. Adjustments to medications have been made in blood pressure seems to be somewhat more controlled. Patient being resumed on home medications and increase in lisinopril per cardiology. Patient is afebrile although reports some cough and congestion will add Mucinex and continue vitamin and zinc supplements. Patient is Covid positive although denies any shortness of breath and is saturating oxygen above 95% on room air. Patient is afebrile although does report some body aches and will add Tylenol and Motrin encouraged increased activity as tolerated. Encouraged fluids and rest and will discuss possible discharge planning in the next 24 hours. Review of systems: Constitutional: No reports of fatigue, fever, or chills reports body aches Cardiovascular: No reports of chest pain or palpitations Respiratory: No reports of shortness of breath , reports cough and congestion GI: No reports of nausea, vomiting, or diarrhea : No reports of dysuria or retention Neurovascular: No reports of weakness or numbness All medications have been reviewed Physical exam: Patient is sitting up in the bed comfortably, no acute distress, awake alert and oriented.. HEENT: Normocephalic. Neck is supple. Pupils reactive. Nostrils clear. Oral cavity is moist. Neck reveals no JVD, carotid bruits, or thyromegaly. CHEST EXAMINATION: Trachea is central. Symmetrical expansion. Lung chowdhury clear to auscultation and percussion. CARDIAC: Normal S1, S2 with no gallops. No murmurs ABDOMEN: Soft. Bowel sounds present. Nontender. No organomegaly. No abdominal bruits. Extremities: reveal no edema. No clubbing or cyanosis Neurologically awake, alert, oriented x3 with well-coordinated movements. No focal deficits noted Skin: No rash or skin lesions. Psychiatric: Patient is anxious and agitated at times although calm and cooperative at this time Musculoskeletal: No joint swelling or deformity. Normal range of motion. Assessment: Acute COVID-19 infection Intermittent chest pain likely pleuritic. Ruled out ACS. Generalized anxiety Chronic pain syndrome Hypertension uncontrolled Hyperlipidemia GERD Currently everyday smoker and marijuana use History of alcohol use Prior history of inguinal hernia repair DVT prophylaxis with Lovenox subcu Plan: Patient is being closely monitored with cardiology following. Ordered a renal artery Doppler study which is currently pending. Patient's troponins were negative and home medications resumed and adjustments to medications including an increase in lisinopril is being done with cardiology recommending close monitoring overnight Patient continue on vitamin and zinc supplements along with subcutaneous Lovenox Patient is reporting cough and congestion and difficulty in sleeping will add Mucinex along with Robitussin as needed and patient does use trazodone that is ordered as needed as well Patient encouraged fluids and rest Patient is reporting some generalized body aches and only had morphine from the ER ordered and will add Tylenol and Motrin as needed will follow-up with cardiology in the a.m. and discuss possible discharge planning in the next 24 hours The impression and plan of care has been dictated by Claudia Low, Nurse Practitioner as directed. Dr. Shaheed MD I have performed a history and examination and MDM of this patient, discussed the same with the dictator, and agree with the dictator's assessment and plan as written ,documented as a scribe. Based on total visit time, I have performed more than 50% of the visit. Objective - Vital Signs Vital signs: Vital Signs Temp 98.6 F 05/30/23 07:00 Pulse 85 05/30/23 07:00 Resp 16 05/30/23 07:00 BP 159/93 05/30/23 07:00 Pulse Ox 99 05/30/23 07:00 FiO2 Intake & Output 05/29/23 05/30/23 05/30/23 18:59 06:59 18:59 Weight 72.575 kg 72.575 kg Other: Voiding Method Toilet # Voids 2 - Labs CBC & Chem 7: 05/30/23 06:19 05/30/23 06:19 Labs: Abnormal Lab Results - Last 24 Hours (Table) 05/29/23 05/29/23 05/29/23 Range/Units 14:04 14:04 14:28 RBC 3.66 L (4.30-5.90) m/uL Hgb 12.6 L (13.0-17.5) gm/dL Hct 35.9 L (39.0-53.0) % Glucose 114 H (74-99) mg/dL Coronavirus (PCR) Detected A (Not Detectd)
[2023-05-30] MEDS ORDERED: ATORVASTATIN 20 MG TAB PO SCH (21:00)
[2023-05-30] MEDS: ACETAMINOPHEN TAB 325 MG TAB PO PRN (21:15)
[2023-05-31] MEDS: IBUPROFEN 600 MG TAB PO PRN ×2 (01:52→09:11)
[2023-05-31] MEDS: guaiFENesin SYRUP 100MG/5ML 200 MG/10 ML CUP PO PRN ×2 (02:30→09:43)
[2023-05-31 07:38] VITALS: BP 167/85; PULSE 98; TEMP 97.7
--- NOTE | 2023-05-31 08:19 | US ---
EXAMINATION TYPE: US renal artery duplex complete DATE OF EXAM: 05/31/2023 COMPARISON: CT CLINICAL INDICATION: Male, 47 years old with history of Rule out renal artery stenosis; Uncontrolled HTN MEASUREMENTS: RENAL SIZE: Rt Kidney: 11.0 x 4.6 x 5.8 Lt Kidney: 11.7 x 6.2 x 5.6 RESISTANCE INDEX Right: 0.6 Left: 0.7 RA/AO RATIO (< 3.5 ) Right: 1.9 Left: 2.5 RA VELOCITY ( < 180 cm/s) Right: 119 Left: 156 Cystic lesion mid/lateral right kidney= 1.5 x 1.2 x 1.5 cm Bilateral renal artery velocities <180, however left renal artery has higher velocities and higher RAR when compared to right IMPRESSION: 1. No diagnostic evidence renal artery stenosis.
[2023-05-31] MEDS ORDERED: LISINOPRIL-HCTZ 20-12.5 MG 1 EACH TAB PO SCH (09:00)
[2023-05-31] MEDS ORDERED: cloNIDine HCL 0.2 MG TAB PO SCH (09:00)
[2023-05-31] MEDS ORDERED: amLODIPine 10 MG TAB PO SCH (09:00)
[2023-05-31] MEDS: busPIRone HCl 10 MG TAB PO SCH (09:01)
[2023-05-31] MEDS: ZINC SULFATE 220 MG CAP PO SCH (09:02)
[2023-05-31] MEDS: ASPIRIN 81 MG PO SCH (09:02)
[2023-05-31] MEDS: CHOLECALCIFEROL 25 MCG (1000 IU) TABLET PO SCH (09:02)
[2023-05-31] MEDS: METOPROLOL SUCCINATE (ER) 50 MG TAB.ER.24H PO SCH (09:02)
[2023-05-31] MEDS: allopurinoL 100 MG TAB PO SCH (09:02)
[2023-05-31] MEDS: guaiFENesin 600 MG TABLET.ER PO SCH (09:02)
[2023-05-31] MEDS: PANTOPRAZOLE 40 MG TABLET PO SCH (09:02)
[2023-05-31] MEDS: ENOXAPARIN 40 MG/0.4 ML SYRINGE SQ SCH (09:02)
[2023-05-31] MEDS: ASCORBIC ACID 500 MG TAB PO SCH (09:02)
[2023-05-31] MEDS: ACETAMINOPHEN TAB 325 MG TAB PO PRN (09:12)
--- NOTE | 2023-05-31 09:33 | P.PN ---
Subjective CHIEF COMPLAINT: Hypertension HISTORY OF PRESENT ILLNESS: This is a 47-year-old male with a past medical history significant for hypertension and hyperlipidemia. Patient follows in the office with Dr. Dunham. We have been asked to see the patient in consultation for hypertension and chest pain. Patient examined at the bedside. Patient was at the cardiology office yesterday with vague complaints of chest discomfort and shortness of breath. He was found to have elevated blood pressures and advised to come to the emergency room. The patient was found to be positive for Covid 19. Patient was started on lisinopril-hydrochlorothiazide in addition to his metoprolol. His blood pressures are improved this morning with a reading of 159/93. * EKG reveals sinus tachycardia with no signs of acute ischemia * Chest xray negative for acute process. Correlate for COPD. * Laboratory data: WBC 7.1. Hemoglobin 12.6. platelet count 210. D-dimer 0.19. Sodium 134. Potassium 3.9. proBNP 169. Troponin negative 3. * Current home cardiac medications include Lipitor 20 mg at night and metoprolol succinate 50 mg daily * Most recent echocardiogram obtained in the office in January 2023 revealed ejection fraction 60%, mild TR, mild AR * Patient underwent stress test in January 2023 at the office which was negative for stress-induced ischemia 05/31/2023 Patient examined this morning at the bedside. Patient denies chest pain or pressure. He denies shortness of breath. Renal artery Doppler completed with n o evidence of renal artery stenosis. Blood pressures remain elevated with a systolic between [id number]. PHYSICAL EXAM: Thorough physical exam not completed secondary to limited evaluation/examination due to Covid19 ASSESSMENT: Covid 19 Hypertension, uncontrolled Chest pain, troponin negative x3, ACS ruled out Hyperlipidemia Nicotine dependence PLAN: No need to repeat echocardiogram as this was performed in the office in January 31 Continue current cardiac medications Add amlodipine 10 mg daily Labs for secondary hypertension are pending Patient may be discharged home today from a cardiac standpoint and follow-up with Dr. Dunham Nurse practitioner note has been reviewed by physician. Signing provider agrees with the documented findings, assessment, and plan of care. Objective - Vital Signs Vital signs: Vital Signs Temp 97.7 F 05/31/23 07:00 Pulse 98 05/31/23 07:00 Resp 16 05/31/23 07:00 BP 167/85 05/31/23 07:00 Pulse Ox 99 05/31/23 08:34 FiO2 1 05/31/23 08:34 Intake & Output 05/30/23 05/31/23 05/31/23 18:59 06:59 18:59 Other: Voiding Method Toilet Toilet # Voids 5 2 # Bowel Movements 2 - Labs CBC & Chem 7: 05/30/23 06:19 05/30/23 06:19 Labs: Abnormal Lab Results - Last 24 Hours (Table) 05/30/23 05/30/23 Range/Units 06:19 06:19 RBC 3.84 L (4.40-5.60) X 10*6/uL Hct 37.5 L (39.6-50.0) % MCV 97.7 H (80.0-97.0) FL MCH 33.9 H (27.0-32.0) pg Eosinophils # 0.36 H (0.04-0.35) X 10*3/uL BUN 8.7 L (9.0-27.0) mg/dL C-Reactive Protein 2.90 H (0.00-0.80) mg/dL HDL Cholesterol 73.60 H (40.00-60.00) mg/dL
== END 2023-05-31 13:20 | disposition home or self-care (01) ==
LOC: EC 13:08 → 6NMEDSUR 15:50
PROVIDERS: ADMIT Hospitalist; ATTEND Hospitalist
DX: R07.89 Other chest pain (principal); U07.1 COVID-19; I10 Essential (primary) hypertension; K21.9 Gastro-esophageal reflux disease without esophagitis; F41.9 Anxiety disorder, unspecified; E78.5 Hyperlipidemia, unspecified; G89.4 Chronic pain syndrome; F12.90 Cannabis use, unspecified, uncomplicated; F17.210 Nicotine dependence, cigarettes, uncomplicated; Z79.51 Long term (current) use of inhaled steroids; Z79.899 Other long term (current) drug therapy; Z88.0 Allergy status to penicillin
CPT/HCPCS: 96376 ×2; 96372 ×2; 96361; 96374; 99285; 36415; 94760; 85379; 83880; 80061; 80053; 80048; 82533; 84244; 83605; 83615; 84484; 85025 ×2; 86140; 87502; 84145; 87635; 71046; 93975; G0378 ×3; J2270 ×2; J1650 ×2; 93005

== ENCOUNTER → 2023-11-14 | Outpatient (CLI) | payer OTHER ==
--- NOTE | 2023-11-14 13:27 | CT ---
EXAMINATION TYPE: CT abdomen pelvis w con CT DLP: 630.1 mGycm, Automated exposure control for dose reduction was used. DATE OF EXAM: 11/14/2023 9:06 AM COMPARISON: CT abdomen pelvis most recent from 11/30/2018. CLINICAL INDICATION:Male, 48 years old with history of R10.9 intermittent abdominal pain; pain, herni a TECHNIQUE: Axial CT abdomen pelvis w con;Sagittal and coronal reformats were created on a separate w orkstation. Contrast used:100 mL of Isovue 300 with IV Contrast, (none if empty) Oral contrast used: with Oral Contrast (none if empty) FINDINGS: LOWER CHEST: Unremarkable ABDOMEN LIVER: Unremarkable GALLBLADDER AND BILE DUCTS: Unremarkable. PANCREAS: Unremarkable. SPLEEN: Unremarkable. ADRENAL GLANDS: Unremarkable. KIDNEYS AND URETERS: No evidence of hydronephrosis or renal calculus. The ureters are unremarkable. Right renal cysts. PELVIS BLADDER: Unremarkable REPRODUCTIVE: Unremarkable. ABDOMEN & PELVIS STOMACH AND BOWEL: No evidence of bowel obstruction. PERITONEUM/RETROPERITONEUM: No evidence of pneumoperitoneum or free fluid. VASCULATURE: No evidence of aortic aneurysm. MUSCULOSKELETAL: No acute osseous abnormalities LYMPH NODES: No gross evidence for lymphadenopathy. SOFT TISSUE/ABDOMINAL WALL: Fatty changes to the inguinal canals bilaterally. On the left with some f at stranding changes near the inguinal canal best appreciated on coronal imaging series 7 image 27. IMPRESSION: 1. Bilateral fatty changes to the inguinal canals. There is fat stranding changes around the left in guinal canal possibly relating to prior surgical intervention. No evidence for bowel obstruction. Fin dings are not significantly changed from 11/20/2018. 2. No additional evidence for acute abdominal process.
== END | disposition home or self-care (01) ==
LOC: RADCTMAIN 06:50
PROVIDERS: ATTEND Family Medicine
DX: R10.9 Unspecified abdominal pain (principal)
CPT/HCPCS: 74177; Q9967

== ENCOUNTER 2024-01-03 12:38 | Day surgery (SDC) | payer OTHER ==
--- NOTE | 2024-01-03 09:39 | P.GSHP ---
History of Present Illness H&P Date: 01/03/24 CHIEF COMPLAINT: Inguinal hernia, left HISTORY OF PRESENT ILLNESS: The patient is a 48-year-old male who presents with a history of swelling and pain along the left groin. He has had previous repair. He's noted increased swelling including pain of the area. Now he presents for repair of his inguinal hernia. PAST MEDICAL HISTORY: Please see list. PAST SURGICAL HISTORY: Please see list. MEDICATIONS: Please see list. ALLERGIES: Please see list. SOCIAL HISTORY: No illicit drug use FAMILY HISTORY: No reports of Crohn disease or ulcerative colitis. REVIEW OF ORGAN SYSTEMS: CONSTITUTIONAL: No reports of fevers or chills. No reports of weight loss despite prior attempts. GI: Denies any blood in stools or constipation. PHYSICAL EXAM: VITAL SIGNS: Stable GENERAL: Well-developed pleasant male in no acute distress. HEENT: No scleral icterus. Extraocular movements grossly intact. Moist buccal mucosa. NECK: Supple without lymphadenopathy. CHEST: Unlabored respirations. Equal bilateral excursions. CARDIOVASCULAR: Regular rate and rhythm. Distal 2+ pulses. ABDOMEN: Soft, nondistended. No peritoneal signs. Swelling of the left groin. MUSCULOSKELETAL: No clubbing, cyanosis, or edema. ASSESSMENT: 1. Inguinal hernia, left PLAN: 1. Recommend proceeding with a robotic inguinal repair with mesh with possible bilateral approach. 2. Benefits and risks of surgical intervention was discussed including possibility of open technique. 3. DVT prophylaxis. 4. Antibiotic prophylaxis. 5. Non narcotic pain management including abdominal wall block described 6. Blood sugar glucose described. 7. Weight loss management described. Past Medical History Past Medical History: GERD/Reflux, Hyperlipidemia, Hypertension Additional Past Medical History / Comment(s): "chronic pain symdrome" History of Any Multi-Drug Resistant Organisms: MRSA Date of last positivie culture/infection: 11/30/15 MDRO Source:: Right Arm Past Surgical History: Hernia Repair, Orthopedic Surgery Additional Past Surgical History / Comment(s): left inguinal hernia, arthroscopy rt knee, Past Anesthesia/Blood Transfusion Reactions: No Reported Reaction Smoking Status: Former smoker - Past Family History Mother Family Medical History: No Reported History Medications and Allergies Home Medications Medication Instructions Recorded Confirmed Type RX: Atorvastatin [Lipitor] 20 mg PO HS 01/30/19 12/31/23 History RX: Omeprazole 40 mg PO DAILY #14 capsule. 02/04/19 12/31/23 Rx RX: Metoprolol Succinate (ER) 50 mg PO DAILY 05/29/23 12/31/23 History [Toprol XL] RX: allopurinoL [Zyloprim] 100 mg PO DAILY 05/29/23 12/31/23 History RX: Lisinopril-Hctz 20-12.5 mg 1 each PO DAILY #30 tab 05/31/23 12/31/23 Rx [Zestoretic 20-12.5] RX: amLODIPine [Norvasc] 10 mg PO DAILY #30 tab 05/31/23 12/31/23 Rx Allergies Allergy/AdvReac Type Severity Reaction Status Date / Time Penicillins Allergy Anaphylaxis Verified 12/31/23 14:29
[~2024-01-03 12:38] MED LIST changes: -CLINDAMYCIN 900 MG in DEXTROSE 5% IN WATER 50 ML IVPB ONE; -DEXAMETHASONE SOD PHOSPHATE 10 MG/ML 1 ML VIAL IV ONE; -HEPARIN SODIUM,PORCINE 5,000 UNIT/ML 1 ML VIAL SQ ONE; +HEPARIN SODIUM,PORCINE 5,000 UNIT/ML 1 ML VIAL SQ PRN; -HYDROmorphone 0.5 MG/0.5 ML SYRINGE IVP PRN; -LEVOFLOXACIN 500MG-D5W PMX 500 MG in DEXTROSE/WATER 1 100ML.BAG IVPB ONE; -MIDAZOLAM 2 MG/2 ML VIAL IV PRN; -ONDANSETRON 4 MG/2 ML VIAL IVP ONE; +ONDANSETRON 4 MG/2 ML VIAL IVP PRN; -SCOPOLAMINE 1.5MG/72HR PATCH TRANSDERM ONE
[2024-01-03] MEDS: LACTATED RINGERS 1,000 ML IV ONE ×2 (13:35→16:36)
[2024-01-03] MEDS: ACETAMINOPHEN TAB 500 MG TAB PO PRN (13:39)
[2024-01-03] MEDS: TAMSULOSIN 0.4 MG CAP.ER.24H PO STA (13:39)
[2024-01-03] MEDS: MELOXICAM 7.5 MG TAB PO PRN (13:39)
[2024-01-03] MEDS: ONDANSETRON 4 MG/2 ML VIAL IVP ONE (14:06)
[2024-01-03] MEDS: DEXAMETHASONE SOD PHOSPHATE 4 MG/ML 1 ML VIAL IVP ONE (14:06)
--- NOTE | 2024-01-03 14:09 | P.HPADDEND ---
H&P Addendum H&P Addendum Date: 01/03/24 Due to work restrictions, patient wants lysis adhesions only. In the presence of hernia repair, patient wished to defer any repair at this time
[2024-01-03 14:16] LABS: Basophils % (A) 0 %; Eosinophils # (A) 0.2 k/uL (0-0.7); Eosinophils % (A) 3 %; HCT 38.3 % (39.0-53.0); Lymphocytes # (A) 3.5 k/uL (1.0-4.8); Lymphocytes % (A) 39 %; MCH 31.9 pg (25.0-35.0); MCHC 33.8 g/dL (31.0-37.0); MCV 94.1 fL (80.0-100.0); Mean Platelet Volume 8.9; Monocytes # (A) 0.5 k/uL (0-1.0); Monocytes % (A) 5 %; Neutrophils # (A) 4.5 k/uL (1.3-7.7); Neutrophils % (A) 51 %; Platelet Count 219 k/uL (150-450); RBC 4.07 m/uL (4.30-5.90); RDW 12.5 % (11.5-15.5); WBC 8.8 k/uL (3.8-10.6)
[2024-01-03] MEDS: MIDAZOLAM 2 MG/2 ML VIAL IVP ONE (14:30)
[2024-01-03 14:34] LABS: ALT 23 U/L (4-49); AST 27 U/L (17-59); African American GFR (CKD) >90 (>60 ml/min/1.73 sqM); Albumin 4.2 g/dL (3.5-5.0); Alkaline Phosphatase 68 U/L (38-126); Anion Gap 4 mmol/L; Blood Urea Nitrogen 24 mg/dL (9-20); Calcium 9.1 mg/dL (8.4-10.2); Carbon Dioxide 29 mmol/L (22-30); Chloride 108 mmol/L (98-107); Glucose 95 mg/dL (74-99); Non-African American GFR(CKD) >90 (>60 ml/min/1.73 sqM); Potassium 3.7 mmol/L (3.5-5.1); Sodium 141 mmol/L (137-145); Total Bilirubin 0.4 mg/dL (0.2-1.3); Total Protein 6.8 g/dL (6.3-8.2)
[2024-01-03] MEDS ORDERED: NEOSTIGMINE 1 MG/ML 10 ML VIAL ONE (14:39)
[2024-01-03] MEDS ORDERED: DEXAMETHASONE SOD PHOSPHATE 4 MG/ML 1 ML VIAL ONE (14:39)
[2024-01-03] MEDS ORDERED: LIDOCAINE 1% INJ 10MG/ML (20 ML MDV) ONE (14:39)
[2024-01-03] MEDS ORDERED: ROPIVACAINE 5 MG/ML 30 ML VIAL ONE (14:39)
[2024-01-03] MEDS ORDERED: ROCURONIUM 10 MG/ML (5 ML VIAL) IV ONE (14:39)
[2024-01-03] MEDS ORDERED: SODIUM CHLORIDE 0.9% (PF) 10 ML VIAL ONE (14:39)
[2024-01-03] MEDS ORDERED: SUCCINYLCHOLINE CHLORIDE 200 MG/10 ML VIAL IV ONE (14:39)
[2024-01-03] MEDS ORDERED: PROPOFOL 10 MG/ML 20 ML VIAL IV ONE (14:39)
[2024-01-03] MEDS ORDERED: GLYCOPYRROLATE 0.2 MG/ML 2 ML VIAL ONE (14:39)
[2024-01-03] MEDS ORDERED: fentaNYL (PF) 50 MCG/ML 2 ML AMP ONE (14:39)
[2024-01-03] MEDS: LIDOCAINE 1%-EPI 1:100,000 50 ML VIAL SQ ONE ×2 (14:46→15:20)
[2024-01-03 16:07] VITALS: TEMP 98
[2024-01-03] MEDS: HYDROmorphone 0.5 MG/0.5 ML SYRINGE IVP ONE (16:09)
[2024-01-03 17:14] VITALS: RESP 16
[2024-01-03 17:46] VITALS: BP 122/74; PULSE 75
--- NOTE | 2024-01-05 19:16 | P.ANPRN ---
Procedure Note - Anesthesia - Nerve Block Performed Bilateral Erector Spinae Single Time Out Performed: Yes Date of Procedure: 01/03/24 Procedure Start Time: 14:32 Procedure Stop Time: 14:34 Location of Patient: PreOp Indication: Acute Post-Operative Pain, Requested by Surgeon Sedation Type: Sedate with meaningful contact maintained Preparation: Sterile Prep, Sterile Dressing Position: Prone Needle Types: Pajunk Needle Gauge: 21 Ultrasound used to visualize needle placement: Yes Ultrasound used to observe medication spread: Yes Blood Aspirated: No Pain Paresthesia on Injection Noted: No Resistance on Injection: Normal Image Stored and Saved: Yes Events: Uneventful and Well Tolerated (Ropivacaine 0.5% 15 cc plus dexamethasone 4 mg plus normal saline 10 cc given bilaterally at L1)
--- NOTE | 2024-01-08 12:25 | P.PN ---
Progress Note - Text Progress Note Date: 01/08/24 [id number] - [id number] Patient contacted at home. He reports complete resolution of pre-existing left groin pain following lysis of adhesions. Patient may follow-up as needed.
--- NOTE | 2024-01-18 17:18 | P.OP ---
Date of Procedure: 01/03/24 Description of Procedure: SURGEON: DIVINA TOLENTINO MD PREOPERATIVE DIAGNOSES: 1. Left inguinal pain 2. History of bilateral inguinal hernia repair 3. Tobacco abuse disorder 4. Hypertensive heart disease 5. Gout 6. Gastroesophageal reflux disease 7. Hyperlipidemia 8. Chronic pain syndrome POSTOPERATIVE DIAGNOSES: 1. Left inguinal pain due to pelvic peritoneal adhesions 2. History of bilateral inguinal hernia repair 3. Tobacco abuse disorder 4. Hypertensive heart disease 5. Gout 6. Gastroesophageal reflux disease 7. Hyperlipidemia 8. Chronic pain syndrome OPERATION: 1. Robotic-assisted da Pilar Xi laparoscopic with lysis of adhesions ESTIMATED BLOOD LOSS: 5 mL. SPECIMENS REMOVED: None. COMPLICATIONS: None. OPERATIVE FINDINGS: 1. No recurrent inguinal hernias 2. Moderate pelvic adhesions involving the left groin and sigmoid colon 3. Mesh repair bilaterally identified. 4. Liver unremarkable 5. Gallbladder unremarkable INDICATIONS: The patient is a 48-year-old male who presents pain and tenderness along the left groin. He has pre-existing history of inguinal hernia repairs done open technique. Surgical intervention with diagnostic laparoscopy, lysis of adhesions and possible left inguinal hernia repair were described. Informed consent was obtained. Robotic assisted laparoscopic approach was described. Benefits and risks of the procedure including but not limited to bleeding, infection was described. Informed consent was obtained. DESCRIPTION OF PROCEDURE: Patient was brought to the operating room, placed in supine position. After general induction, the abdomen had been prepped and draped in standard sterile fashion. The robotic da Pilar XI system was primed. After a timeout protocol was performed, the patient had been prepped and draped in standard sterile fashion. The robot was docked along the left lateral abdomen. Please note prior to docking of the robot; however, a 5 mm 0 degrees laparoscopic trocar entry was performed along the left upper quadrant. Next, three 8 mm robotic ports were placed along the left lateral abdominal wall abdomen. Trochars were placed at least 10 to 15 cm away from the target anatomy. Instruments including graspers and scissors with cautery were interchanged by the executive administrative assistant. I had sat at the console. Moderate pelvic adhesions along the left groin including sigmoid colon was found. Blunt dissection including sharp dissection using scissors and Bovie cautery was used releasing adhesions from the left groin and left pelvis. Multiple interloop adhesions were also identified. No recurrent inguinal hernia along the right groin was identified. Hemostasis was checked. The sigmoid colon was highly redundant. No large or small bowel obstruction was identified. The robot was undocked. All pneumoperitoneum and instruments were evacuated from the abdominal cavity. The incisions were reapproximated using 4-0 Monocryl in an interrupted subcuticular fashion. Please note along the trocar sites, local anesthetic was placed as a field block prior to insertion of all instruments. Exofin was applied to the skin. At the end of the procedure needle, sponge, and instrument count had been verified correct by the nuclear reactor technician. The patient was transferred to postanesthesia care unit in stable condition. Plan - Discharge Summary Discharge Rx Participant: No New Discharge Prescriptions: New Acetaminophen Tab [Tylenol Tab] 1,000 mg PO Q6HR PRN #30 tablet PRN Reason: Pain Simethicone [Gas-X] 125 mg PO AC-TID PRN #20 capsule PRN Reason: Pain Ibuprofen [Motrin] 600 mg PO Q8HR PRN #30 tab PRN Reason: Pain Continue Atorvastatin [Lipitor] 20 mg PO HS Omeprazole 40 mg PO DAILY #14 capsule. Metoprolol Succinate (ER) [Toprol XL] 50 mg PO DAILY Lisinopril-Hctz 20-12.5 mg [Zestoretic 20-12.5] 1 each PO DAILY #30 tab allopurinoL [Zyloprim] 100 mg PO DAILY amLODIPine [Norvasc] 10 mg PO DAILY #30 tab Discharge Medication List Atorvastatin [Lipitor] 20 mg PO HS 01/30/19 [History] Omeprazole 40 mg PO DAILY #14 capsule. 02/04/19 [Rx] Metoprolol Succinate (ER) [Toprol XL] 50 mg PO DAILY 05/29/23 [History] allopurinoL [Zyloprim] 100 mg PO DAILY 05/29/23 [History] Lisinopril-Hctz 20-12.5 mg [Zestoretic 20-12.5] 1 each PO DAILY #30 tab 05/31/23 [Rx] amLODIPine [Norvasc] 10 mg PO DAILY #30 tab 05/31/23 [Rx] Acetaminophen Tab [Tylenol Tab] 1,000 mg PO Q6HR PRN #30 tablet 01/03/24 [Rx] Ibuprofen [Motrin] 600 mg PO Q8HR PRN #30 tab 01/03/24 [Rx] Simethicone [Gas-X] 125 mg PO AC-TID PRN #20 capsule 01/03/24 [Rx] Follow up Appointment(s)/Referral(s): Divina Tolentino MD [STAFF PHYSICIAN] - 01/07/24 (TELEHEALTH - DR WILL CALL YOU BETWEEN 8 am to 8 pm) Patient Instructions/Handouts: *Surgery [facility] - (Anesthesia) Discharge Instructions Outpatient Surgery, Lysis of Abdominal Adhesions (DC) Activity/Diet/Wound Care/Special Instructions: TELEHEALTH - DR WILL CALL YOU BETWEEN 8 am to 8 pm No lifting over 10 pounds in 2 weeks until January 16February shower. No bath tub soaks for two weeks until January 16 Diet as tolerated. Use Tylenol, simethicone and ibuprofen or Aleve scheduled for the next 24-48 hours for best pain relief. Use ice along incisions for today to prevent swelling. Discharge Disposition: HOME SELF-CARE
== END 2024-01-03 17:27 | disposition home or self-care (01) ==
LOC: OR 12:38
PROVIDERS: ATTEND Surgery Plastic and Reconstructive Surgery
DX: K40.90 Unilateral inguinal hernia, without obstruction or gangrene, not specified as recurrent (principal); I10 Essential (primary) hypertension; E78.5 Hyperlipidemia, unspecified; K21.9 Gastro-esophageal reflux disease without esophagitis; G89.29 Other chronic pain; F12.90 Cannabis use, unspecified, uncomplicated; Z87.891 Personal history of nicotine dependence; Z98.890 Other specified postprocedural states; Z88.0 Allergy status to penicillin; Z79.899 Other long term (current) drug therapy
CPT/HCPCS: 44180; S2900; 64999; 80053; 85025

== ENCOUNTER 2024-07-26 19:25 | Emergency (ER) | payer OTHER ==
[2024-07-26 19:30] VITALS: TEMP 98
--- NOTE | 2024-07-26 20:09 | ED ---
Recheck HPI - General Chief Complaint: Recheck/Abnormal Lab/Rx Stated Complaint: right hand issue Time Seen by Provider: 07/26/24 20:08 Source: patient, RN notes reviewed Mode of arrival: ambulatory Limitations: no limitations - History of Present Illness Initial Comments: 48-year-old male presented to the ER for evaluation of wound. 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 He states he went to the drugstore to buy liquid bandage to repair wound. He states wound appeared to be healing but on Saturday he noticed some surrounding redness and he was concerned of infection. He does report a history of MRSA in his right upper extremity years ago that required hospital ization. Patient was seen at urgent care and started on doxycycline. He has since had 4 doses of antibiotic at this time. He states today he noticed some difficulty with range of motion which brought him to the ER for evaluation as he is concerned of worsening infection. He denies any fevers or chills. No new injuries. States his tetanus vaccination is up-to-date. No other complaints at this time. - Related Data Home Medications Medication Instructions Recorded Confirmed Atorvastatin [Lipitor] 20 mg PO HS 01/30/19 01/03/24 Metoprolol Succinate (ER) [Toprol 50 mg PO DAILY 05/29/23 01/03/24 XL] allopurinoL [Zyloprim] 100 mg PO DAILY 05/29/23 01/03/24 Previous Rx's Medication Instructions Recorded Omeprazole 40 mg PO DAILY #14 capsule. 02/04/19 Lisinopril-Hctz 20-12.5 mg 1 each PO DAILY #30 tab 05/31/23 [Zestoretic 20-12.5] amLODIPine [Norvasc] 10 mg PO DAILY #30 tab 05/31/23 Acetaminophen Tab [Tylenol Tab] 1,000 mg PO Q6HR PRN #30 tablet 01/03/24 Ibuprofen [Motrin] 600 mg PO Q8HR PRN #30 tab 01/03/24 Simethicone [Gas-X] 125 mg PO AC-TID PRN #20 capsule 01/03/24 Doxycycline [Vibramycin] 100 mg PO BID #12 capsule 07/26/24 Allergies Allergy/AdvReac Type Severity Reaction Status Date / Time Penicillins Allergy Anaphylaxis Verified 07/26/24 19:27 Review of Systems ROS Statement: Those systems with pertinent positive or pertinent negative responses have been documented in the HPI. ROS Other: All systems not noted in ROS Statement are negative. Past Medical History Past Medical History: GERD/Reflux, Hyperlipidemia, Hypertension Additional Past Medical History / Comment(s): "chronic pain symdrome" History of Any Multi-Drug Resistant Organisms: MRSA Date of last positivie culture/infection: 11/30/15 MDRO Source:: Right Arm Past Surgical History: Hernia Repair, Orthopedic Surgery Additional Past Surgical History / Comment(s): left inguinal hernia, arthroscopy rt knee, Past Anesthesia/Blood Transfusion Reactions: No Reported Reaction Past Psychological History: No Psychological Hx Reported Smoking Status: Former smoker - Past Family History Mother Family Medical History: No Reported History General Exam Limitations: no limitations General appearance: alert, in no apparent distress Respiratory exam: Present: normal lung sounds bilaterally. Absent: respiratory distress, wheezes, rales, rhonchi, stridor Cardiovascular Exam: Present: regular rate, normal rhythm, normal heart sounds. Absent: systolic murmur, diastolic murmur, rubs, gallop, clicks Extremities exam: Present: normal inspection, full ROM, normal capillary refill, other (2 cm healing wound to right second MCP joint. Patient has full range of motion of digit. Minimal erythema surrounding wound. No purulent drainage. Liquid bandage in place. No fluctuance or pain with passive range of motion. 2+ right radial pulse.). Absent: tenderness, pedal edema, joint swelling, calf tenderness Neurological exam: Present: alert, oriented X3, CN II-XII intact Skin exam: Present: warm, dry, intact, normal color. Absent: rash Course Vital Signs 07/26/24 19:27 Temperature 98 F Pulse Rate 102 H Respiratory 18 Rate Blood Pressure 168/91 O2 Sat by Pulse 100 Oximetry Medical Decision Making - Medical Decision Making Was pt. sent in by a medical professional or institution (, PA, CLAIM TECHNICIAN, urgent care, hospital, or senior care...) When possible be specific @ -No Did you speak to anyone other than the patient for history (EMS, parent, family, police, friend...)? What history was obtained from this source @ -No Did you review nursing and triage notes (agree or disagree)? Why? @ -I reviewed and agree with nursing and triage notes Were old charts reviewed (outside hosp., previous admission, EMS record, old EKG, old radiological studies, urgent care reports/EKG's, senior care records)? Report findings @ -No old charts were reviewed Differential Diagnosis (chest pain, altered mental status, abdominal pain women, abdominal pain men, vaginal bleeding, weakness, fever, dyspnea, syncope, headache, dizziness, GI bleed, back pain, seizure, CVA, palpatations, mental health, musculoskeletal)? @ -Laceration, abrasion, contusion, avulsion, foreign body this list is not meant to be all-inclusive EKG interpreted by me (3pts min.). @ -None done X-rays interpreted by me (1pt min.). @ -None done CT interpreted by me (1pt min.). @ -None done U/S interpreted by me (1pt. min.). @ -None done What testing was considered but not performed or refused? (CT, X-rays, U/S, labs)? Why? @ -None What meds were considered but not given or refused? Why? @ -None Did you discuss the management of the patient with other professionals (professionals i.e. , PA, CLAIM TECHNICIAN, lab, RT, psych nurse, social service manager, paleontological helper, teacher, ground nuclear weapons assembly officer, family independence case manager)? Give summary @ -No Was smoking cessation discussed for >3mins.? @ -No Was critical care preformed (if so, how long)? @ -No Were there social determinants of health that impacted care today? How? (Homeles sness, low income, unemployed, alcoholism, drug addiction, transportation, low edu. Level, literacy, decrease access to med. care, snf, rehab)? @ -No Was there de-escalation of care discussed even if they declined (Discuss DNR or withdrawal of care, Hospice)? DNR status @ -No What co-morbidities impacted this encounter? (DM, HTN, Smoking, COPD, CAD, Cancer, CVA, ARF, Chemo, Hep., AIDS, mental health diagnosis, sleep apnea, morbid obesity)? @ -None Was patient admitted / discharged? Hospital course, mention meds given and route, prescriptions, significant lab abnormalities, going to OR and other pertinent info. @ -Discharge. 48-year-old male presented to the ER for wound check. Patient was seen by urgent care on Saturday and started on doxycycline. He has had 4 doses since. History and physical exam completed. Vitals stable. Exam remarkable for neurovascular intact right upper extremity. There is a 2 cm healing laceration overlying second MCP joint. There is minimal surrounding erythema. Full range of motion of all digits. No purulence, pain with passive extension or significant edema. As patient has only had 4 doses of doxycycline, patient is stable for discharge with continued use of doxycycline and close follow-up with primary care physician. Patient reports that his pharmacy only gave him 4 days worth of antibiotics as they did not have enough pills in stock, a 6-day course of doxycycline was prescribed and sent to pharmacy. I instructed patient to complete full 10-day course of doxycycline and follow-up with his primary care physician in the next 1 to 2 days. Wound care discussed. Strict return parameters discussed. Patient discharged in stable condition with follow-up to PCP. Patient verbally expressed understanding and agreement with care plan. Case discussed with ED attending, Dr. Arauz. Undiagnosed new problem with uncertain prognosis? @ -No Drug Therapy requiring intensive monitoring for toxicity (Heparin, Nitro, Insulin, Cardizem)? @ -No Were any procedures done? @ -No Diagnosis/symptom? @ -Wound check/cellulitis Acute, or Chronic, or Acute on Chronic? @ -Acute Uncomplicated (without systemic symptoms) or Complicated (systemic symptoms)? @ -Uncomplicated Side effects of treatment? @ -No Exacerbation, Progression, or Severe Exacerbation? @ -No Poses a threat to life or bodily function? How? (Chest pain, [place], AR, pneumonia, PE, COPD, DKA, ARF, appy, cholecystitis, CVA, Diverticulitis, Homicidal, Suicidal, threat to staff... and all critical care pts) @ -Low at this time Disposition Clinical Impression: Visit for wound check, Cellulitis Disposition: HOME SELF-CARE Condition: Stable Instructions (If sedation given, give patient instructions): Acute Wound Care (ED) Additional Instructions: Complete full 10-day course of doxycycline. 6-day course has been sent to your pharmacy. Follow-up with primary care physician in the next 1 to 2 days. Return to the ER for any new or worsening concerns. Prescriptions: Doxycycline [Vibramycin] 100 mg PO BID #12 capsule Is patient prescribed a controlled substance at d/c from ED?: No Referrals: Catia De Paz MD [Primary Care Provider] - 1-2 days Time of Disposition: 20:09
[2024-07-26 20:19] VITALS: BP 130/73; PULSE 65; RESP 16
== END 2024-07-26 20:44 | disposition home or self-care (01) ==
LOC: EC 19:25
CPT/HCPCS: 99283

== ENCOUNTER 2025-03-24 08:34 | Day surgery (SDC) | payer OTHER ==
--- NOTE | 2025-03-24 07:42 | P.GSHP ---
History of Present Illness H&P Date: 03/24/25 CHIEF COMPLAINT: Dysphagia and colon screen HISTORY OF PRESENT ILLNESS: The patient is a 49-year-old male who presents with dysphagia, gastroesophageal reflux disease and need for colon screen. Upper and lower endoscopy were offered for further evaluation and management. PAST MEDICAL HISTORY: Please see list. PAST SURGICAL HISTORY: Please see list. MEDICATIONS: Please see list. ALLERGIES: Please see list. SOCIAL HISTORY: No illicit drug use FAMILY HISTORY: No reports of Crohn disease or ulcerative colitis. REVIEW OF ORGAN SYSTEMS: CONSTITUTIONAL: No reports of fevers or chills. GI: Denies any blood in stools or constipation. PHYSICAL EXAM: VITAL SIGNS: Stable GENERAL: Well-developed pleasant in no acute distress. HEENT: No scleral icterus. Extraocular movements grossly intact. Moist buccal mucosa. NECK: Supple without lymphadenopathy. CHEST: Unlabored respirations. Equal bilateral excursions. CARDIOVASCULAR: Regular rate and rhythm. Distal 2+ pulses. ABDOMEN: Soft, nondistended. MUSCULOSKELETAL: No clubbing, cyanosis, or edema. ASSESSMENT: 1. Dysphagia and gastroesophageal reflux disease 2. Colon screen. PLAN: 1. Recommend proceeding with an upper and lower endoscopy Past Medical History Past Medical History: GERD/Reflux, Hyperlipidemia, Hypertension Additional Past Medical History / Comment(s): "chronic pain symdrome" History of Any Multi-Drug Resistant Organisms: MRSA Date of last positivie culture/infection: 11/30/15 MDRO Source:: Right Arm Past Surgical History: Hernia Repair, Orthopedic Surgery Additional Past Surgical History / Comment(s): left inguinal hernia, arthroscopy rt knee, Past Anesthesia/Blood Transfusion Reactions: No Reported Reaction Smoking Status: Former smoker - Past Family History Mother Family Medical History: No Reported History Medications and Allergies Home Medications Medication Instructions Recorded Confirmed Type Atorvastatin [Lipitor] 20 mg PO HS 01/30/19 03/23/25 History Omeprazole 40 mg PO DAILY #14 capsule. 02/04/19 03/23/25 Rx Metoprolol Succinate (ER) [Toprol 50 mg PO DAILY 05/29/23 03/23/25 History XL] Lisinopril-Hctz 20-12.5 mg 1 each PO DAILY #30 tab 05/31/23 03/23/25 Rx [Zestoretic 20-12.5] amLODIPine [Norvasc] 10 mg PO DAILY #30 tab 05/31/23 03/23/25 Rx Acetaminophen Tab [Tylenol Tab] 1,000 mg PO Q6HR PRN #30 tablet 01/03/24 03/23/25 Rx Gabapentin [Neurontin] 400 mg PO TID 03/23/25 03/23/25 History HYDROcodone/APAP 10-325MG [[place] 1 tab PO TID 03/23/25 03/23/25 History 10-325] Indomethacin [Indocin] 50 mg PO TID PRN 03/23/25 03/23/25 History Meloxicam [Mobic] 15 mg PO DAILY 03/23/25 03/23/25 History allopurinoL [Zyloprim] 100 mg PO DAILY 03/23/25 03/23/25 History Allergies Allergy/AdvReac Type Severity Reaction Status Date / Time Penicillins Allergy Anaphylaxis Verified 03/23/25 08:13
[~2025-03-24 08:34] MED LIST changes: -HEPARIN SODIUM,PORCINE 5,000 UNIT/ML 1 ML VIAL SQ PRN; +LIDOCAINE 1% (10MG/ML) FOR IV START INTRADERMA PRN; -ONDANSETRON 4 MG/2 ML VIAL IVP PRN
[2025-03-24] MEDS: IV FLUID CONTINUATION 1,000 ML IV ONE (09:24)
[2025-03-24 09:37] VITALS: TEMP 98.1
[2025-03-24] MEDS: LACTATED RINGERS 1,000 ML IV SCH (09:42)
[2025-03-24] MEDS ORDERED: PROPOFOL 10 MG/ML 20 ML VIAL IV ONE (10:12)
[2025-03-24] MEDS ORDERED: LIDOCAINE 1% INJ 10MG/ML (20 ML MDV) ONE (10:12)
--- NOTE | 2025-03-24 10:53 | P.PCN ---
Date of Procedure: 03/24/25 Description of Procedure: PREOPERATIVE DIAGNOSIS: Gastroesophageal reflux disease. Dysphagia Epigastric abdominal POSTOPERATIVE DIAGNOSIS: Gastroesophageal reflux disease. Gastritis. OPERATION: Esophagogastroduodenoscopy with cold forceps biopsies along esophagus, antrum and duodenum SURGEON: Divina Tolentino MD ANESTHESIA: MAC. INDICATIONS: The patient is a 49-year-old female who presents with dysphagia and reflux disease. Benefits and risks of the procedure were described. Informed consent was obtained. DESCRIPTION: The patient was brought into the endoscopy suite and laid in the left lateral decubitus position. An Olympus gastroscope was passed along the posterior oropharynx down to the distal esophagus where the squamocolumnar junction was encountered at 40 cm from the incisors. The stomach was entered and no bile reflux was found. Additional findings are listed below. Biopsies with cold forceps were obtained of the antrum. The first through third portion of the duodenum was examined. Retroflexion of the scope confirmed Hill grade 1 lower esophageal valve. The squamocolumnar junction demonstrated LA grade A erosive esophagitis. The stomach was desufflated. The patient tolerated the procedure well. FINDINGS: Squamocolumnar junction 40 cm from the incisors. Diaphragmatic hiatus at 40 cm. Hill grade 4 lower esophageal valve. LA grade A erosive esophagitis. Biopsies obtained Biopsies obtained of the duodenum. Chronic gastritis with biopsies obtained. RECOMMENDATIONS: Upper endoscopy as needed.
[2025-03-24 11:13] VITALS: BP 131/91; PULSE 69; RESP 17
--- NOTE | 2025-03-24 11:18 | P.PN ---
Progress Note - Text Progress Note Date: 03/24/25 Patient reports atypical chest pain epigastric pain. Will obtain CBC CMP EKG
--- NOTE | 2025-03-24 11:18 | P.PCN ---
Date of Procedure: 03/24/25 Description of Procedure: PREOPERATIVE DIAGNOSIS: Colonoscopy screening. POSTOPERATIVE DIAGNOSIS: Colonoscopy screening. OPERATION: Colonoscopy to the cecum, ileocecal valve and appendiceal orifice. SURGEON: Divina Tolentino MD. ANESTHESIA: MAC. INDICATIONS: The patient is a 49-year-old male who presents for colonoscopy screening. Benefits and risks were described and informed consent was obtained. DESCRIPTION OF PROCEDURE: The patient had undergone Suprep. The patient had been brought into the operating room and laid in the left lateral decubitus position. After adequate intravenous sedation, the rectum was examined with 2% lidocaine jelly. No external hemorrhoids were encountered. The rectal tone was within normal limits. No lesions were palpated in the rectal vault. An Olympus colonoscope was advanced until the cecum, ileocecal valve and appendiceal orifice were clearly viewed. The prep was excellent. Scattered diverticulosis was encountered. No colonic polyps were found. No evidence of focal colitis was found. Retroflexion of the scope demonstrated grade 1 internal hemorrhoids without active bleeding or inflammation. The colon was desufflated. The patient had tolerated the procedure well. Withdrawal time was over 6 minutes. FINDINGS: Aronchick preparation quality scale 3 (1-5) with moderate irrigation Internal hemorrhoids, grade 1 No external prolapsed hemorrhoids. No arteriovenous malformations. No adenomatous polyps. No focal colitis. RECOMMENDATIONS: Lower endoscopy in 10 years, 2034 Plan - Discharge Summary Discharge Rx Participant: No New Discharge Prescriptions: Continue Atorvastatin [Lipitor] 20 mg PO HS Omeprazole 40 mg PO DAILY #14 capsule. Metoprolol Succinate (ER) [Toprol XL] 50 mg PO DAILY Lisinopril-Hctz 20-12.5 mg [Zestoretic 20-12.5] 1 each PO DAILY #30 tab Acetaminophen Tab [Tylenol] 1,000 mg PO Q6HR PRN #30 tablet PRN Reason: Pain allopurinoL [Zyloprim] 100 mg PO DAILY Meloxicam [Mobic] 15 mg PO DAILY Indomethacin [Indocin] 50 mg PO TID PRN PRN Reason: Pain Gabapentin [Neurontin] 400 mg PO TID amLODIPine [Norvasc] 10 mg PO DAILY #30 tab HYDROcodone/APAP 10-325MG [[place] 10-325] 1 tab PO TID Discharge Medication List Atorvastatin [Lipitor] 20 mg PO HS 01/30/19 [History] Omeprazole 40 mg PO DAILY #14 capsule. 02/04/19 [Rx] Metoprolol Succinate (ER) [Toprol XL] 50 mg PO DAILY 05/29/23 [History] Lisinopril-Hctz 20-12.5 mg [Zestoretic 20-12.5] 1 each PO DAILY #30 tab 05/31/23 [Rx] amLODIPine [Norvasc] 10 mg PO DAILY #30 tab 05/31/23 [Rx] Acetaminophen Tab [Tylenol] 1,000 mg PO Q6HR PRN #30 tablet 01/03/24 [Rx] Gabapentin [Neurontin] 400 mg PO TID 03/23/25 [History] HYDROcodone/APAP 10-325MG [[place] 10-325] 1 tab PO TID 03/23/25 [History] Indomethacin [Indocin] 50 mg PO TID PRN 03/23/25 [History] Meloxicam [Mobic] 15 mg PO DAILY 03/23/25 [History] allopurinoL [Zyloprim] 100 mg PO DAILY 03/23/25 [History] Follow up Appointment(s)/Referral(s): Divina Tolentino MD [STAFF PHYSICIAN] - 06/25/25 (Gallbladder surgery at [facility]) Patient Instructions/Handouts: Gastritis (DC), Cholecystitis (ED), Colonoscopy (DC) Activity/Diet/Wound Care/Special Instructions: Repeat colonoscopy in 10 years, 2034. Gallbladder surgery June 25, 2025, Saturday Discharge Disposition: HOME SELF-CARE
[2025-03-24 11:31] LABS: Basophils # (A) 0.04 10*3/uL (0.00-0.10); Basophils % (A) 0.5 %; Eosinophils # (A) 0.19 10*3/uL (0.04-0.35); Eosinophils % (A) 2.2 %; HGB 13.3 g/dL (13.0-17.0); Lymphocytes # (A) 1.88 10*3/uL (0.90-5.00); Lymphocytes % (A) 21.3 %; MCH 31.7 pg (27.0-32.0); MCHC 35.9 g/dL (32.0-37.0); MCV 88.3 fL (80.0-97.0); Mean Platelet Volume 10.5 fL (9.5-12.2); Monocytes # (A) 0.52 10*3/uL (0.20-1.00); Monocytes % (A) 5.9 %; Neutrophils # (A) 6.15 10*3/uL (1.80-7.70); Neutrophils % (A) 69.8 %; Platelet Count 222 10*3/uL (140-440); RBC 4.19 10*6/uL (4.40-5.60); RDW 12.9 % (11.5-14.5); WBC 8.81 10*3/uL (4.50-10.00)
[2025-03-24 11:52] LABS: ALT 18 U/L (4-49); AST 27 U/L (17-59); African American GFR (CKD) >90 (>60 ml/min/1.73 sqM); Albumin 3.7 g/dL (3.5-5.0); Alkaline Phosphatase 69 U/L (38-126); Anion Gap 7 mmol/L; Blood Urea Nitrogen 13 mg/dL (9-20); Calcium 9.1 mg/dL (8.4-10.2); Carbon Dioxide 26 mmol/L (22-30); Chloride 104 mmol/L (98-107); Glucose 82 mg/dL (74-99); Non-African American GFR(CKD) >90 (>60 ml/min/1.73 sqM); Potassium 3.7 mmol/L (3.5-5.1); Sodium 137 mmol/L (137-145); Total Bilirubin 0.8 mg/dL (0.2-1.3)
== END 2025-03-24 11:34 | disposition home or self-care (01) ==
LOC: ORWHC2ENDO 08:34
PROVIDERS: ATTEND Surgery Plastic and Reconstructive Surgery
DX: Z12.11 Encounter for screening for malignant neoplasm of colon (principal); K57.30 Diverticulosis of large intestine without perforation or abscess without bleeding; K64.0 First degree hemorrhoids; K29.50 Unspecified chronic gastritis without bleeding; K21.00 Gastro-esophageal reflux disease with esophagitis, without bleeding; I10 Essential (primary) hypertension; E78.5 Hyperlipidemia, unspecified; G89.4 Chronic pain syndrome; F41.9 Anxiety disorder, unspecified; R07.89 Other chest pain; Z79.1 Long term (current) use of non-steroidal anti-inflammatories (NSAID); Z79.899 Other long term (current) drug therapy; Z87.891 Personal history of nicotine dependence; Z86.14 Personal history of Methicillin resistant Staphylococcus aureus infection; Z88.0 Allergy status to penicillin
CPT/HCPCS: 88305; 80053; 85025; 45378; 43239; J2003; J2704

== ENCOUNTER 2025-04-24 10:34 | Emergency (ER) | payer OTHER ==
--- NOTE | 2025-04-24 11:24 | ED ---
Abdominal Pain HPI - General Chief Complaint: Abdominal Pain Stated Complaint: Abd Pain Time Seen by Provider: 04/24/25 11:23 Source: patient, RN notes reviewed, old records reviewed Mode of arrival: ambulatory Limitations: no limitations - History of Present Illness Initial Comments: 49-year-old male presented the ER for evaluation of abdominal pain. Patient reports he is following up with Dr. Tolentino outpatient for gallbladder issues. He reports he underwent colonoscopy with her approximately 1 month ago. He reports since Saturday he has been experiencing abdominal pain. He contributed this to eating bad chicken wings on Saturday night. Patient reports he had has soft bowel movements but states they are not diarrhea. He reports this morning he did have an episode of nausea and vomiting which prompted emergency department visit. He denies any hematemesis, coffee-ground emesis, melena or hematochezia. Patient has not taken anything for his pain at this time. Patient reports he is experiencing a lower abdominal achy discomfort currently rating it a 10 out of 10. Patient reports he has been having dysuria as well. Denies back pain. Patient reports he is not sexually active. Denies any abnormal penile discharge. No scrotal pain or swelling. No pain with defecation. Denies any fevers, chest pain, shortness of breath. Prior hernia repair. No other abdominal surgeries. - Related Data Home Medications Medication Instructions Recorded Confirmed Atorvastatin [Lipitor] 20 mg PO HS 01/30/19 03/24/25 Metoprolol Succinate (ER) [Toprol 50 mg PO DAILY 05/29/23 03/24/25 XL] Gabapentin [Neurontin] 400 mg PO TID 03/23/25 03/24/25 HYDROcodone/APAP 10-325MG [Costa 1 tab PO TID 03/23/25 03/24/25 10-325] Indomethacin [Indocin] 50 mg PO TID PRN 03/23/25 03/24/25 Meloxicam [Mobic] 15 mg PO DAILY 03/23/25 03/24/25 allopurinoL [Zyloprim] 100 mg PO DAILY 03/23/25 03/24/25 Previous Rx's Medication Instructions Recorded Omeprazole 40 mg PO DAILY #14 capsule. 02/04/19 Lisinopril-Hctz 20-12.5 mg 1 each PO DAILY #30 tab 05/31/23 [Zestoretic 20-12.5] amLODIPine [Norvasc] 10 mg PO DAILY #30 tab 05/31/23 Acetaminophen Tab [Tylenol] 1,000 mg PO Q6HR PRN #30 tablet 01/03/24 Ciprofloxacin HCl [Cipro] 500 mg PO Q12HR #20 tablet 04/24/25 Ondansetron Odt [Zofran Odt] 4 mg PO Q8HR PRN #10 tab 04/24/25 Allergies Allergy/AdvReac Type Severity Reaction Status Date / Time Penicillins Allergy Anaphylaxis Verified 04/24/25 10:48 Review of Systems ROS Statement: Those systems with pertinent positive or pertinent negative responses have been documented in the HPI. ROS Other: All systems not noted in ROS Statement are negative. Past Medical History Past Medical History: GERD/Reflux, Hyperlipidemia, Hypertension Additional Past Medical History / Comment(s): "chronic pain symdrome" History of Any Multi-Drug Resistant Organisms: MRSA Date of last positivie culture/infection: 11/30/15 MDRO Source:: Right Arm Past Surgical History: Hernia Repair, Orthopedic Surgery Additional Past Surgical History / Comment(s): left inguinal hernia, arthroscopy rt knee, Past Anesthesia/Blood Transfusion Reactions: No Reported Reaction Past Psychological History: Anxiety Smoking Status: Former smoker - Past Family History Mother Family Medical History: No Reported History General Exam Limitations: no limitations General appearance: alert, in no apparent distress ENT exam: Present: normal exam, normal oropharynx, mucous membranes moist Respiratory exam: Present: normal lung sounds bilaterally. Absent: respiratory distress, wheezes, rales, rhonchi, stridor Cardiovascular Exam: Present: regular rate, normal rhythm, normal heart sounds. Absent: systolic murmur, diastolic murmur, rubs, gallop, clicks GI/Abdominal exam: Present: soft, tenderness (Lower abdomen), normal bowel sounds. Absent: distended, guarding, rebound, rigid Extremities exam: Present: normal inspection, full ROM, normal capillary refill. Absent: tenderness, pedal edema, joint swelling, calf tenderness Neurological exam: Present: alert, oriented X3, CN II-XII intact Skin exam: Present: warm, dry, intact, normal color. Absent: rash Course Vital Signs 04/24/25 04/24/25 04/24/25 10:45 11:10 12:57 Temperature 98.3 F Pulse Rate 96 80 75 Respiratory 16 16 18 Rate Blood Pressure 117/73 125/79 120/75 O2 Sat by Pulse 99 100 99 Oximetry 04/24/25 04/24/25 14:19 14:33 Temperature 98.4 F Pulse Rate 86 87 Respiratory 17 16 Rate Blood Pressure 150/59 135/72 O2 Sat by Pulse 96 97 Oximetry Medical Decision Making - Medical Decision Making Was pt. sent in by a medical professional or institution (, PA, MANAGER SOFTWARE, urgent care, hospital, or [facility]...) When possible be specific @ -No Did you speak to anyone other than the patient for history (EMS, parent, family, police, friend...)? What history was obtained from this source @ -No Did you review nursing and triage notes (agree or disagree)? Why? @ -I reviewed and agree with nursing and triage notes Were old charts reviewed (outside hosp., previous admission, EMS record, old EKG, old radiological studies, urgent care reports/EKG's, [facility] records)? Report findings @ -No old charts were reviewed Differential Diagnosis (chest pain, altered mental status, abdominal pain women, abdominal pain men, vaginal bleeding, weakness, fever, dyspnea, syncope, headach e, dizziness, GI bleed, back pain, seizure, CVA, palpatations, mental health, musculoskeletal)? @ -[Differential Abdominal Pain Men:Appendicitis, cholecystitis, diverticulosis, ischemic bowel, pancreatitis, hepatitis, UTI, gastroenteritis, AAA, incarcerated hernia, bowel obstruction, constipation, inflammatory bowel, hepatitis, peptic ulcer disease, splenic infarction, perforated viscus, testicu lar torsion, this is not meant to be an all-inclusive list EKG interpreted by me (3pts min.). @ -As above X-rays interpreted by me (1pt min.). @ -None done CT interpreted by me (1pt min.). @ -CT abdomen pelvis negative for acute intra-abdominal process. U/S interpreted by me (1pt. min.). @ -None done What testing was considered but not performed or refused? (CT, X-rays, U/S, labs)? Why? @ -None What meds were considered but not given or refused? Why? @ -None Did you discuss the management of the patient with other professionals (professionals i.e. , PA, MANAGER SOFTWARE, lab, RT, psych nurse, social welfare administrator, ssn/ssbn weapons equipment operator, teacher, activities officer, rn field case manager)? Give summary @ -No Was smoking cessation discussed for >3mins.? @ -No Was critical care preformed (if so, how long)? @ -No Were there social determinants of health that impacted care today? How? (Homelessness, low income, unemployed, alcoholism, drug addiction, transportation, low edu. Level, literacy, decrease access to med. care, [facility]ci, rehab)? @ -No Was there de-escalation of care discussed even if they declined (Discuss DNR or withdrawal of care, Hospice)? DNR status @ -No What co-morbidities impacted this encounter? (DM, HTN, Smoking, COPD, CAD, Cancer, CVA, ARF, Chemo, Hep., AIDS, mental health diagnosis, sleep apnea, morbid obesity)? @ - Was patient admitted / discharged? Hospital course, mention meds given and route, prescriptions, significant lab abnormalities, going to OR and other pertinent info. @ -Discharge. 49-year-old male presented the ER for evaluation of abdominal pain. On arrival vital signs stable. Patient no signs acute distress nontoxic- appearing. Laboratory studies remarkable for WBC of 15.7 left shift likely reactive. Hemoglobin 11.4. Lipase 28. Lactic 0.7. Viral swabs negative. Urinalysis concerning for infection with 161 WBCs and 13 RBCs for which patient will be started on ciprofloxacin given penicillin allergy, first dose in the ER. Urine will be sent for culture along with urine STD testing. CT abdomen pelvis negative for acute process. EKG showing a sinus rhythm. Patient provided with symptomatic treatment with IV fluids, Zofran and Toradol. Upon reevaluation, patient sleeping in exam room no signs of acute distress. Patient educated on today's findings. Patient tolerating oral intake. Advised him to follow-up closely with PCP and urology for further evaluation of UTI. Strict return parameters discussed. Patient discharged stable condition. Patient verbally expressed understand agree with care plan. Case discussed with ED rosalio barajas, Dr. Guzman. Undiagnosed new problem with uncertain prognosis? @ -No Drug Therapy requiring intensive monitoring for toxicity (Heparin, Nitro, Insulin, Cardizem)? @ -No Were any procedures done? @ -No Diagnosis/symptom? @ -UTI/abdominal pain Acute, or Chronic, or Acute on Chronic? @ -Acute Uncomplicated (without systemic symptoms) or Complicated (systemic symptoms)? @ -Complicated Side effects of treatment? @ -No Exacerbation, Progression, or Severe Exacerbation? @ -No Poses a threat to life or bodily function? How? (Chest pain, [place], [place], pneumonia, PE, COPD, DKA, ARF, appy, cholecystitis, CVA, Diverticulitis, Homicidal, Suicidal, threat to staff... and all critical care pts) @ -Low at this time - Lab Data Result diagrams: 04/24/25 11:03 04/24/25 11:03 Lab Results 04/24/25 04/24/25 04/24/25 Range/Units 11:03 11:03 11:03 WBC 15.76 H (4.50-10.00) 10*3/uL RBC 3.61 L (4.40-5.60) 10*6/uL Hgb 11.4 L (13.0-17.0) g/dL Hct 32.2 L (39.6-50.0) % MCV 89.2 (80.0-97.0) fL MCH 31.6 (27.0-32.0) pg MCHC 35.4 (32.0-37.0) g/dL Plt Count 301 (140-440) 10*3/uL MPV 10.9 (9.5-12.2) fL Immature Gran % (Auto) 0.4 % Neutrophils % 81.1 % Lymphocytes % 7.9 % Monocytes % 9.8 % Eosinophils % 0.5 % Basophils % 0.3 % Immature Gran # 0.06 H (0.00-0.04) 10*3/uL Neutrophils # 12.79 H (1.80-7.70) 10*3/uL Lymphocytes # 1.24 (0.90-5.00) 10*3/uL Monocytes # 1.55 H (0.20-1.00) 10*3/uL Eosinophils # 0.08 (0.04-0.35) 10*3/uL Basophils # 0.04 (0.00-0.10) 10*3/uL Sodium 139 (137-145) mmol/L Potassium 3.5 (3.5-5.1) mmol/L Chloride 103 (98-107) mmol/L Carbon Dioxide 30 (22-30) mmol/L Anion Gap 6 mmol/L BUN 18 (9-20) mg/dL Creatinine 0.75 (0.66-1.25) mg/dL Est GFR (CKD-EPI)AfAm >90 (>60 ml/min/1.73 sqM) Est GFR (CKD-EPI)NonAf >90 (>60 ml/min/1.73 sqM) Glucose 105 H (74-99) mg/dL Plasma Lactic Acid Arsenio 0.7 (0.7-2.0) mmol/L Calcium 8.9 (8.4-10.2) mg/dL Total Bilirubin 0.5 (0.2-1.3) mg/dL AST 23 (17-59) U/L ALT 18 (4-49) U/L Alkaline Phosphatase 86 (38-126) U/L Total Protein 6.1 L (6.3-8.2) g/dL Albumin 3.5 (3.5-5.0) g/dL Amylase 37 (30-110) U/L Lipase 28 (23-300) U/L Urine Color Urine Appearance (Clear) Urine pH (5.0-8.0) Ur Specific [place] (1.001-1.035) Urine Protein (Negative) Urine Glucose (UA) (Negative) Urine Ketones (Negative) Urine Blood (Negative) Urine Nitrite (Negative) Urine Bilirubin (Negative) Urine Urobilinogen (<2.0) mg/dL Ur Leukocyte Esterase (Negative) Urine RBC (0-5) /hpf Urine WBC (0-5) /hpf Ur Squamous Epith Cells (0-4) /hpf Urine Bacteria (None) /hpf Urine Mucus (None) /hpf Chlamydia DNA (PCR) (Negative) Influenza Type A (PCR) (Not Detectd) Influenza Type B (PCR) (Not Detectd) N.gonorrhoeae DNA Probe (Negative) RSV (PCR) (Not Detectd) SARS-CoV-2 (PCR) (Not Detectd) 04/24/25 04/24/25 04/24/25 Range/Units 12:03 12:03 12:03 WBC (4.50-10.00) 10*3/uL RBC (4.40-5.60) 10*6/uL Hgb (13.0-17.0) g/dL Hct (39.6-50.0) % MCV (80.0-97.0) fL MCH (27.0-32.0) pg MCHC (32.0-37.0) g/dL Plt Count (140-440) 10*3/uL MPV (9.5-12.2) fL Immature Gran % (Auto) % Neutrophils % % Lymphocytes % % Monocytes % % Eosinophils % % Basophils % % Immature Gran # (0.00-0.04) 10*3/uL Neutrophils # (1.80-7.70) 10*3/uL Lymphocytes # (0.90-5.00) 10*3/uL Monocytes # (0.20-1.00) 10*3/uL Eosinophils # (0.04-0.35) 10*3/uL Basophils # (0.00-0.10) 10*3/uL Sodium (137-145) mmol/L Potassium (3.5-5.1) mmol/L Chloride (98-107) mmol/L Carbon Dioxide (22-30) mmol/L Anion Gap mmol/L BUN (9-20) mg/dL Creatinine (0.66-1.25) mg/dL Est GFR (CKD-EPI)AfAm (>60 ml/min/1.73 sqM) Est GFR (CKD-EPI)NonAf (>60 ml/min/1.73 sqM) Glucose (74-99) mg/dL Plasma Lactic Acid Arsenio (0.7-2.0) mmol/L Calcium (8.4-10.2) mg/dL Total Bilirubin (0.2-1.3) mg/dL AST (17-59) U/L ALT (4-49) U/L Alkaline Phosphatase (38-126) U/L Total Protein (6.3-8.2) g/dL Albumin (3.5-5.0) g/dL Amylase (30-110) U/L Lipase (23-300) U/L Urine Color Yellow Urine Appearance Cloudy (Clear) Urine pH 6.5 (5.0-8.0) Ur Specific [place] 1.024 (1.001-1.035) Urine Protein 1+ H (Negative) Urine Glucose (UA) Negative (Negative) Urine Ketones Negative (Negative) Urine Blood Small H (Negative) Urine Nitrite Negative (Negative) Urine Bilirubin Negative (Negative) Urine Urobilinogen 2.0 (<2.0) mg/dL Ur Leukocyte Esterase Large H (Negative) Urine RBC 13 H (0-5) /hpf Urine WBC 161 H (0-5) /hpf Ur Squamous Epith Cells <1 (0-4) /hpf Urine Bacteria Rare H (None) /hpf Urine Mucus Rare H (None) /hpf Chlamydia DNA (PCR) Negative (Negative) Influenza Type A (PCR) Not Detected (Not Detectd) Influenza Type B (PCR) Not Detected (Not Detectd) N.gonorrhoeae DNA Probe Negative (Negative) RSV (PCR) Not Detected (Not Detectd) SARS-CoV-2 (PCR) Not Detected (Not Detectd) - EKG Data -: EKG Interpreted by Me EKG Comments: EKG taken at 11: 33 showing a sinus rhythm. No ST segment elevations or depressions. No T wave inversions. Ventricular rate 69, GA interval 135, QRS duration 94, QT/QTc 375/395. - Radiology Data Radiology results: report reviewed, image reviewed Disposition Clinical Impression: UTI (urinary tract infection) Disposition: HOME SELF-CARE Condition: Stable Instructions (If sedation given, give patient instructions): Urinary Tract Infection in Men (ED) Additional Instructions: Follow-up with urology. Take antibiotics as prescribed. Return to the ER for any new or worsening concerns. Prescriptions: Ciprofloxacin HCl [Cipro] 500 mg PO Q12HR #20 tablet Ondansetron Odt [Zofran Odt] 4 mg PO Q8HR PRN #10 tab PRN Reason: Nausea Is patient prescribed a controlled substance at d/c from ED?: No Referrals: Karl Clifton DO [Primary Care Provider] - 1-2 days Vj Mcmanus MD [STAFF PHYSICIAN] - 1-2 days Time of Disposition: 14:27
[2025-04-24] MEDS: ONDANSETRON 4 MG/2 ML VIAL IVP STA (11:52)
[2025-04-24] MEDS: KETOROLAC 15 MG/ML 1 ML VIAL IVP STA (11:52)
[2025-04-24] MEDS: SODIUM CHLORIDE 0.9% 1,000 ML IV ONE (11:52)
[2025-04-24 12:14] LABS: Basophils # (A) 0.04 10*3/uL (0.00-0.10); Basophils % (A) 0.3 %; Eosinophils # (A) 0.08 10*3/uL (0.04-0.35); Eosinophils % (A) 0.5 %; HCT 32.2 % (39.6-50.0); HGB 11.4 g/dL (13.0-17.0); Lymphocytes # (A) 1.24 10*3/uL (0.90-5.00); Lymphocytes % (A) 7.9 %; MCH 31.6 pg (27.0-32.0); MCHC 35.4 g/dL (32.0-37.0); MCV 89.2 fL (80.0-97.0); Monocytes # (A) 1.55 10*3/uL (0.20-1.00); Monocytes % (A) 9.8 %; Neutrophils # (A) 12.79 10*3/uL (1.80-7.70); Neutrophils % (A) 81.1 %; Platelet Count 301 10*3/uL (140-440); RBC 3.61 10*6/uL (4.40-5.60); RDW 12.9 % (11.5-14.5); WBC 15.76 10*3/uL (4.50-10.00)
[2025-04-24 12:22] LABS: ALT 18 U/L (4-49); AST 23 U/L (17-59); African American GFR (CKD) >90 (>60 ml/min/1.73 sqM); Albumin 3.5 g/dL (3.5-5.0); Alkaline Phosphatase 86 U/L (38-126); Amylase 37 U/L (30-110); Anion Gap 6 mmol/L; Blood Urea Nitrogen 18 mg/dL (9-20); Calcium 8.9 mg/dL (8.4-10.2); Carbon Dioxide 30 mmol/L (22-30); Chloride 103 mmol/L (98-107); Glucose 105 mg/dL (74-99); Lipase 28 U/L (23-300); Non-African American GFR(CKD) >90 (>60 ml/min/1.73 sqM); Potassium 3.5 mmol/L (3.5-5.1); Sodium 139 mmol/L (137-145); Total Protein 6.1 g/dL (6.3-8.2)
[2025-04-24 12:42] LABS: Bacteria,Urine Rare /hpf; Bilirubin,Urine Negative (Negative); Blood,Urine Small (Negative); Color,Urine Yellow; Glucose,Urine (UA) Negative (Negative); Ketones,Urine Negative (Negative); Leukocyte Esterase,Urine Large (Negative); Mucus,Urine Rare /hpf; Nitrite,Urine Negative (Negative); PH, Urine 6.5 (5.0-8.0); Protein,Urine 1+ (Negative); RBC,Urine 13 /hpf (0-5); Specific Gravity,Urine 1.024 (1.001-1.035); Squamous Epithelial Cell,Urine <1 /hpf (0-4); Urobilinogen,Urine 2.0 mg/dL (<2.0); WBC,Urine 161 /hpf (0-5)
[2025-04-24 13:05] LABS: RSV Not Detected (Not Detectd)
--- NOTE | 2025-04-24 13:53 | CT ---
EXAMINATION TYPE: CT abdomen pelvis w con DATE OF EXAM: 04/24/2025 COMPARISON: 11/14/2023 CLINICAL INDICATION: Male, 49 years old with history of LLQ abd pain; PHH, LLQ pain, prior hernia sx TECHNIQUE: Performed without Oral Contrast and with IV Contrast, patient injected with 100 mL of Isovue 300. CT DLP: 759.[address] CTDI: mGy Automated exposure control for dose reduction was used. FINDINGS: The lung bases are clear. The gallbladder is normal without distention, wall thickening, pericholecystic fluid or gallstones. T here is no biliary ductal dilatation. There is no focal mass or organomegaly involving the liver, pancreas, spleen or adrenal glands. There is no solid renal mass or hydronephrosis and there is homogeneous contrast enhancement of the r enal parenchyma. The caliber the abdominal aorta is normal is no retroperitoneal adenopathy or hemorr justice. The bowel loops are normal in caliber and there is no evidence of dilatation or obstruction. No infla mmatory changes are identified in the bowel wall or mesentery. There is no free intraperitoneal air or fluid. No pelvic mass, free fluid, abscess or adenopathy. The osseous structures and soft tissues are intact. IMPRESSION: No significant abnormality seen. [facility], , 04/24/2025 1:51 PM
[2025-04-24 14:42] VITALS: BP 135/72; PULSE 87; RESP 16; TEMP 98.4
[2025-04-26 14:44] LABS: C. trachomatis,PCR Negative (Negative); N. gonorrhoeae,PCR Negative (Negative)
== END 2025-04-24 14:35 | disposition home or self-care (01) ==
LOC: EC 10:34
DX: N39.0 Urinary tract infection, site not specified (principal); Z87.891 Personal history of nicotine dependence; Z88.0 Allergy status to penicillin
CPT/HCPCS: 36415; 93005; 80053; 82150; 83605; 83690; 85025; 81001; 87491; 87591; 87086; 87077; 87186; 87636; 74177; 99285; 96374; 96375; 96361; J2405; J1885